=== PATIENT | female | born 1940 | race Caucasian/White ===

== ENCOUNTER 2016-06-18 07:28 | Observation (INO) ==
--- NOTE | 2016-06-18 07:34 | Emergency Department Note ---
Disposition Clinical Impression: Spinal stenosis of lumbar region, Urinary retention, Cauda equina syndrome Disposition: Admitted As Inpatient Condition: Fair Referrals: Lulu Kearney MD [Primary Care Provider] - Forms: ED Satisfaction Letter Time of Disposition: 14:40 Extremity Problem HPI - General Chief complaint: ED Extremity Problem,Nontraumatic Stated complaint: left hip pain Time Seen by Provider: 06/18/16 07:31 Source: patient, EMS Mode of arrival: EMS Limitations: no limitations Nursing Notes Reviewed: Yes Vital Signs Reviewed: Yes - History of Present Illness HPI Narrative: 75-year-old who states she got up to walk yesterday and developed left-sided hip pain. She is able to ambulate on her walker according to the squad. She has pain in her low back and left hip and some radiation down her leg. She denies bowel or bladder incontinence or retention type symptoms. No saddle anesthesia. Pt Subjective Complaint: extremity pain Onset (ago): day(s) Consistency: constant Injury Location: left Pain Scale: 9 Quality: aching Radiation: none Improves with: nothing Worsens with: weight bearing, walking Associated symptoms: Reports: denies other symptoms - Related Data Home Medications Medication Instructions Recorded Confirmed Albuterol Sulfate [Albuterol 1 puff IH Q4HR PRN 01/20/15 06/14/16 Inhaler] Aspirin Enteric Coated [Aspirin EC] 81 mg PO DAILY 01/20/15 06/14/16 Atenolol [Tenormin] 25 mg PO DAILY 01/20/15 06/14/16 Atorvastatin Calcium [Lipitor] 40 mg PO DAILY 01/20/15 06/14/16 Budesonide/Formoterol Fumarate 10.2 gm IH BID PRN 01/20/15 06/14/16 [Symbicort 160-4.5 Mcg Inhaler] Cilostazol [Pletal] 100 mg PO BID 01/20/15 06/14/16 Citalopram Hydrobromide 40 mg PO DAILY 01/20/15 06/14/16 [Citalopram HBr] [place]-3 Fatty Acids [Fish Oil] 1,000 mg PO DAILY 01/20/15 06/14/16 Vitamin E 1,000 unit PO DAILY 01/20/15 06/14/16 Tamsulosin [Flomax] 0.4 mg PO DAILY 07/27/15 06/14/16 Allergies Allergy/AdvReac Type Severity Reaction Status Date / Time adhesive AdvReac See Verified 01/20/15 09:52 Comments aripiprazole [From Abilivishnuy] AdvReac Shakiness Verified 01/20/15 09:49 bupropion AdvReac Rash Verified 01/20/15 09:50 Constitutional: Denies: fever, chills, weakness, weight change Eyes: Denies: eye pain, eye discharge, vision change ENT ED: Denies: ear pain, throat pain, dental pain, hearing loss, epistaxis, congestion, dysphagia Cardiovascular: Denies: chest pain, palpitations, dyspnea on exertion, edema, syncope Respiratory: Denies: cough, dyspnea, wheezes, hemoptysis, stridor Gastrointestinal: Denies: abdominal pain, nausea, vomiting, diarrhea, constipation, hematemesis, melena, hematochezia Genitourinary: Denies: dysuria, frequency, hematuria, discharge Musculoskeletal: Reports: back pain, arthralgia. Denies: neck pain, myalgia Integumentary: Denies: rash, abrasion, lesions Neurological: Denies: headache, weakness, numbness, paresthesias, confusion, abnormal gait, vertigo Psychiatric: Denies: anxiety, depression, suicidal thoughts, homicidal thoughts , auditory hallucinations, visual hallucinations Endocrine: Denies: fatigue Hematological/Lymphatic: Denies: easy bleeding, easy bruising Allergic/Immunologic: Denies: facial swelling, urticaria Past Medical History - Past Medical History Medical history: Reports: cancer, hyperlipidemia, hypertension Surgical history: Reports: angioplasty/stent (AAA, Bilateral fem-pop graft.), hip replacement Psychiatric history: Reports: no psych history - Social History Smoking Status: Current every day smoker Smokeless Tobacco Status: No Alcohol use: Reports: none Drug use: Reports: none Physical Exam - General Limitations: no limitations General appearance: alert, in no apparent distress - Head Head exam: atraumatic, normocephalic, normal inspection - Eye Eye exam: Present: normal appearance, PERRL, EOMI - Expanded Eye Exam Pupils: Left: reactive - ENT ENT exam: normal exam, normal oropharynx, mucous membranes moist - Expanded ENT Exam External ear exam: Present: normal external inspection Mouth exam: Present: normal external inspection Teeth exam: Present: normal inspection Throat exam: Present: normal inspection - Neck Neck exam: Present: normal inspection, full ROM, trachea midline - Chest Chest inspection: Present: normal inspection, symmetric chest wall rise - Respiratory Respiratory exam: Present: normal lung sounds bilaterally - Cardiovascular Cardiovascular exam: Present: regular rate, normal rhythm, normal heart sounds - Abdominal Exam Abdominal exam: Present: soft, Non-Tender. Absent: tenderness, distention, guarding, rebound, rigidity - Expanded Upper Extremity Exam Shoulder exam: Present: normal inspection Arm exam: Present: normal inspection Elbow exam: Present: normal inspection Forearm/Wrist exam: Present: normal inspection Hand exam: Present: normal inspection Vascular exam: Normal: capillary refill, radial pulse - Expanded Lower Extremity Exam Hip/Pelvis exam: Present: normal inspection, tenderness Upper leg exam: Present: normal inspection, full ROM Knee exam: Present: normal inspection, full ROM Lower leg exam: Present: normal inspection, full ROM Ankle exam: Present: normal inspection, full ROM Foot/toe exam: Present: normal inspection, full ROM Neurovascular/Tendon exam: Absent: motor deficit, sensory deficit, tendon deficit - Back Exam Back exam: Present: normal inspection, paraspinal tenderness - Neurological Exam Neurological exam: Present: alert, oriented X3 - Expanded Neurological Exam Patient oriented to: Present: person, place, time Coma Scale Eye Opening: Spontaneous Coma Scale Motor Response: Obeys Commands Coma Scale Verbal Response: Oriented Coma Scale Total: 15 - Psychiatric Psychiatric exam: Present: normal affect, normal mood - Skin Skin exam: Present: warm, dry, intact, normal color Course - Consultations Consultation #1: Discussed with Dr. Calderon, admit to the hospitalist. Time: 13:40 Consultation #2: Discussed with , admit. Time: 14:41 Vital Signs Temperature 97.1 F L 06/18/16 07:29 Pulse Rate 70 06/18/16 07:29 Respiratory Rate 18 06/18/16 07:29 Blood Pressure 188/77 06/18/16 07:29 O2 Sat by Pulse Oximetry 98 06/18/16 07:29 Temperature 97.1 F L 06/18/16 07:29 Pulse Rate 64 06/18/16 14:18 Respiratory Rate 18 06/18/16 14:18 Blood Pressure 149/73 06/18/16 14:18 O2 Sat by Pulse Oximetry 98 06/18/16 14:18 Oxygen Delivery Oxygen Delivery Nasal Cannula Extremity Problem, Nontraumati - Radiology Data Radiology results reviewed: Yes I reviewed the patient's radiology results. Hip X-Ray 06/18/16 07:31 IMPRESSION: No acute fracture with above findings. D/ / Jim Patel MD / Jim Patel MD Interpreting Provider: Jim Patel MD Lumbar Spine CT 06/18/16 07:31 IMPRESSION: No acute fracture. There is disc bulge and protrusion at several levels greater L2-3 and L3-4 with canal and foraminal compromise as above. Cholelithiasis. The urinary bladder is grossly distended. This needs clinical correlation for urinary retention D/ / Jim Patel MD / Jim Patel MD Interpreting Provider: Jim Patel MD Hip X-Ray 06/18/16 07:31 IMPRESSION: No acute fracture with above findings. D/ / Jim Patel MD / Jim Patel MD Interpreting Provider: Jim Patel MD Lumbar Spine CT 06/18/16 07:31 IMPRESSION: No acute fracture. There is disc bulge and protrusion at several levels greater L2-3 and L3-4 with canal and foraminal compromise as above. Cholelithiasis. The urinary bladder is grossly distended. This needs clinical correlation for urinary retention D/ / Jim Patel MD / Jim Patel MD Interpreting Provider: Jim Patel MD Lumbar Spine MRI 06/18/16 08:31 IMPRESSION: 1. Multilevel degenerative changes of the lumbar spine, as described above. 2. Severe spinal canal stenosis, moderate left and mild right neural foraminal narrowing at L2-3 secondary to a disc bulge, facet arthropathy and thickening of the ligamentum flavum. 3. Moderate spinal canal stenosis and mild bilateral neural foramina narrowing at L3-4 as described above. 4. Moderate spinal canal stenosis, moderate right and mild left neural foraminal narrowing at L4-5, as described above. 5. [id number] spinal canal stenosis, effacement of the right lateral recess and mild left neural foraminal narrowing at L5-S1, as described above. D/ / 06/18/2016 11:21:57 Michele Robin MD / Micaela Waller Interpreting Provider: Michele Robin MD
[2016-06-18] MEDS ORDERED: traMADol 50 MG TABLET PO ONE (10:01)
[2016-06-18] MEDS ORDERED: Nicotine 21 MG PATCH.TD24 TD STA (14:51)
[2016-06-18 15:17] LABS: Prothrombin Time 11.3 Seconds (9.4-12.1)
[2016-06-18 15:18] LABS: Basophils % 0.1 %; Eosinophils # 0.1 K/mcL (0.0-0.6); Eosinophils % 1.1 %; Hematocrit 36.7 % (35.3-44.9); Hemoglobin 12.4 g/dL (11.5-15.4); Immature Granulocytes % 0.3 % (0-4); Lymphocytes # 1.4 K/mcL (0.6-4.6); Mean Corpuscular HGB Conc 33.8 g/dL (31.6-35.5); Mean Corpuscular Hemoglobin 31.2 pg (28.0-33.3); Mean Corpuscular Volume 92.4 fL (83.0-100.0); Mean Platelet Volume 9.6 fL (9.4-12.4); Monocytes # 0.7 K/mcL (0.0-1.3); Neutrophils # 5.1 K/mcL (1.6-8.9); Platelet Count 197 K/mcL (140-400); Red Blood Count 3.97 M/mcL (3.82-4.97); Red Cell Distribution Width 13.6 % (11.5-14.5); Segmented Neutrophils % 70.5 %
[2016-06-18 15:20] LABS: Activated Partial Thrombo Time 28.2 Seconds (26.0-36.0); Calcium 9.3 mg/dL (8.6-10.8); Potassium 3.5 mEq/L (3.5-4.5)
--- NOTE | 2016-06-18 15:36 | Internal Med History&Physical ---
<Sabas Hubbard - Last Filed: 06/18/16 17:35> Date of Encounter: 06/18/16 Time of Encounter: 15:31 Assessment and Plan (1) Spinal stenosis of lumbar region Current visit: Yes Status: Acute Spinal surgeon consulted, plan on possible decompression tomorrow; NPO at midnight Likely the etiology of her symptoms given the location of the pain and history of incontinence Supportive measures with analgesia and anti-emetics (2) Urinary retention Current visit: Yes Status: Acute Plan as above with decompression surgery Continue with [facility] for now and accurately measure I/O's (3) CKD (chronic kidney disease) stage 3, GFR 30-59 ml/min Current visit: No Status: Chronic Initial Cr of 1.31 near her baseline Avoid nephrotoxic agents and continue to monitor electrolytes and Cr (4) DVT prophylaxis Current visit: Yes Status: Acute EPCDs Internal Medicine - H&P: HPI Chief complaint: hip pain, urinary retention Admitted From: Home Plans for Post Hospital Care: Home History of present illness: Ms. Butler is a 75 year old female who presents from home with left hip pain. She lives at home with her and is able to walk with assistance of a walker or her spouse. She states the pain started all of a sudden yesterday when she was walking, but she denied any trauma or injury. The pain is located at her left hip laterally, and radiates down to her left knee. There is no weakness or loss of sensation. She does mention a history of frequent falls, attributing them to passing out/TIAs, but she hasn't fallen in 2-3 weeks. She also admits to having a history of bowel incontinence for the past year and has history of urinary retention when she has surgery. Pt states that she was in too many pain today to notice that she was retaining urine and had a full bladder. Denies visual problems, fever, nausea, vomiting, chest pain, or shortness of breath. Past Med Surg Social Fam HX - Past Medical History Medical history: cancer, hyperlipidemia, hypertension Psychiatric history: no psych history - Past Surgical History Surgical History: angioplasty/stent (AAA, Bilateral fem-pop graft.), hip replacement - Social History Smoking Status: Current every day smoker Smokeless Tobacco Status: No Alcohol use: none Drug use: none - Family History Mother Hx Family Cancer: Yes Internal Medicine - H&P: Meds Albuterol Sulfate [Albuterol Inhaler] 1 puff IH Q4HR PRN 01/20/15 [History] Aspirin Enteric Coated [Aspirin EC] 81 mg PO DAILY 01/20/15 [History] Atenolol [Tenormin] 25 mg PO DAILY 01/20/15 [History] Atorvastatin Calcium [Lipitor] 40 mg PO DAILY 01/20/15 [History] Budesonide/Formoterol Fumarate [Symbicort 160-4.5 Mcg Inhaler] 2 puff IH BID 12/28 [History] Cilostazol [Pletal] 100 mg PO BID 01/20/15 [History] Citalopram Hydrobromide [Citalopram HBr] 40 mg PO DAILY 01/20/15 [History] [place]-3 Fatty Acids [Fish Oil] 1,000 mg PO DAILY 01/20/15 [History] Vitamin E 1,000 unit PO DAILY 01/20/15 [History] Tamsulosin [Flomax] 0.4 mg PO DAILY 07/27/15 [History] Allergies adhesive Allergy (Verified 06/18/16 15:44) Rash bupropion Allergy (Verified 06/18/16 15:44) Rash aripiprazole [From Abilify] Adverse Reaction (Verified 01/20/15 09:49) Shakiness All Systems PM: A 10-system review of systems was performed and is negative for pertinent findings except as documented above in the HPI. - Constitutional Constitutional: falls, no chills, no fever(s), no night sweats - EENT Eyes: no change in vision, no discharge, no pain, no photophobia Nose, mouth and throat: no dysphagia, no nasal discharge, no neck pain, no sore throat - Cardiovascular Cardiovascular ROS IM: syncope, no chest pain, no diaphoresis, no dyspnea, no irregular heart rhythm, no lightheadedness, no palpitations - Respiratory Respiratory: no cough, no dyspnea, no wheezing, no excessive phlegm production - Gastrointestinal Gastrointestinal: no abdominal pain, no diarrhea, no hematemesis, no hematochezia, no melena, no nausea, no vomiting - Genitourinary Genitourinary: urinary hesitancy, no change in urinary stream, no dysuria, no flank pain, no hematuria - Musculoskeletal Musculoskeletal ROS IM: arthralgias, no numbness, no tingling - Integumentary Integumentary IM: no rash, no unusual bruising - Neurological Neurological ROS: frequent falls, radicular pain, no confusion, no convulsions, no focal weakness, no numbness, no tingling, no tremor(s) - Hematologic/Lymphatic Hematologic/Lymphatic: no easy bruising - Constitutional Vitals: Temp Pulse Resp BP Pulse Ox 97.1 F L 64 18 134/70 98 06/18/16 07:29 06/18/16 14:18 06/18/16 15:20 06/18/16 15:20 06/18/16 14:18 General appearance: Present: cooperative, A&O X 3, pleasant, no acute distress, obese - Head Head exam: Present: atraumatic, normocephalic - Eye Eye exam: Present: PERRL, conjuntiva pink, sclera anicteric Pupils: Present: PERRL - Neck Neck exam general surgery: Present: supple, trachea midline. Absent: lymphadenopathy - Respiratory Respiratory exam: Present: CTAB. Absent: accessory muscle use, rales, rhonchi, wheezes - Cardiovascular Cardiovascular exam: Present: RRR, +S1, +S2. Absent: diastolic murmur, gallop, rubs, systolic murmur - GI/Abdominal GI/Abdominal exam: Present: normal bowel sounds, soft, no peritoneal signs. Absent: distended, tenderness - Extremities Exam Extremities exam: Present: tenderness (at the left hip to the left knee), warm, radial pulses palpable and symetrical. Absent: calf tenderness, cyanotic, pedal edema - Neurological Exam Neurological exam: Present: alert, CN II-XII intact, oriented X3, no focal deficits. Absent: pronater drift, facial droop, speech deficit - Skin Skin exam: Present: dry, intact Internal Med - H&P Results - Labs CBC & Chem 7: 06/18/16 15:01 06/18/16 15:01 Labs: Short CBC 06/18/16 Range/Units 15:01 WBC 7.2 (4.3-11.1) K/mcL Hgb 12.4 (11.5-15.4) g/dL Hct 36.7 (35.3-44.9) % Plt Count 197 (140-400) K/mcL Neutrophils # 5.1 (1.6-8.9) K/mcL BMP 06/18/16 15:01 Sodium 138 Potassium 3.5 Chloride 96 L Carbon Dioxide 34 H BUN 27 H Creatinine 1.31 H Glucose 110 H Calcium 9.3 - Impressions ITS Impressions Hip X-Ray 06/18/16 07:31 IMPRESSION: No acute fracture with above findings. D/ / Jim Patel MD / Jim Patel MD Interpreting Provider: Jim Patel MD Lumbar Spine CT 06/18/16 07:31 IMPRESSION: No acute fracture. There is disc bulge and protrusion at several levels greater L2-3 and L3-4 with canal and foraminal compromise as above. Cholelithiasis. The urinary bladder is grossly distended. This needs clinical correlation for urinary retention D/ / Jim Patel MD / Jim Patel MD Interpreting Provider: Jim Patel MD Lumbar Spine MRI 06/18/16 08:31 IMPRESSION: 1. Multilevel degenerative changes of the lumbar spine, as described above. 2. Severe spinal canal stenosis, moderate left and mild right neural foraminal narrowing at L2-3 secondary to a disc bulge, facet arthropathy and thickening of the ligamentum flavum. 3. Moderate spinal canal stenosis and mild bilateral neural foramina narrowing at L3-4 as described above. 4. Moderate spinal canal stenosis, moderate right and mild left neural foraminal narrowing at L4-5, as described above. 5. [id number] spinal canal stenosis, effacement of the right lateral recess and mild left neural foraminal narrowing at L5-S1, as described above. D/ / 06/18/2016 11:21:57 Michele Robin MD / Micaela Waller Interpreting Provider: Michele Robin MD <Zara Adkins - Last Filed: 06/19/16 09:46> Date of Encounter: 06/18/16 Internal Medicine - H&P: HPI History of present illness: Ms. Butler is a 75 year old female All Systems PM: A 10-system review of systems was performed and is negative for pertinent findings except as documented above in the HPI. - Constitutional Vitals: Temp Pulse Resp BP Pulse Ox 98.3 F 69 16 177/81 97 06/19/16 07:27 06/19/16 07:27 06/19/16 07:27 06/19/16 07:27 06/19/16 07:27 Internal Med - H&P Results - Labs CBC & Chem 7: 06/19/16 06:30 06/19/16 06:30 Labs: Short CBC 06/18/16 06/19/16 Range/Units 15:01 06:30 WBC 7.2 6.8 (4.3-11.1) K/mcL Hgb 12.4 11.8 (11.5-15.4) g/dL Hct 36.7 35.2 L (35.3-44.9) % Plt Count 197 181 (140-400) K/mcL Neutrophils # 5.1 4.3 (1.6-8.9) K/mcL BMP 06/18/16 06/19/16 15:01 06:30 Sodium 138 138 Potassium 3.5 3.6 Chloride 96 L 97 L Carbon Dioxide 34 H 36 H BUN 27 H 28 H Creatinine 1.31 H 1.34 H Glucose 110 H 97 Calcium 9.3 8.8 - Impressions ITS Impressions Chest X-Ray 06/18/16 16:14 IMPRESSION: No acute pulmonary process. D/ / Smooth Galindo MD / Smooth Galindo MD Interpreting Provider: Smooth Galindo MD
[2016-06-18] MEDS ORDERED: Ondansetron ODT 4 MG TAB.RAPDIS SL PRN (16:04)
[2016-06-18] MEDS ORDERED: Naloxone 0.4 MG/ML INJ IVP PRN ×2 (16:04→19:17)
[2016-06-18] MEDS ORDERED: Acetaminophen 325 MG TABLET PO PRN (16:04)
[2016-06-18] MEDS: *HR* HYDROcodone/Acet 5/325 mg TABLET PO PRN (20:03)
[2016-06-18] MEDS: Budesonide/Formoterol 160/4.5 MDI IH SCH (20:20)
[2016-06-19] MEDS: *HR* Morphine 2 MG/ML SYRINGE IVP PRN ×2 (00:29→09:31)
[2016-06-19 07:00] LABS: Basophils % 0.1 %; Eosinophils # 0.1 K/mcL (0.0-0.6); Eosinophils % 1.9 %; Hematocrit 35.2 % (35.3-44.9); Hemoglobin 11.8 g/dL (11.5-15.4); Immature Granulocytes % 0.4 % (0-4); Lymphocytes # 1.6 K/mcL (0.6-4.6); Lymphocytes % 23.6 %; Mean Corpuscular HGB Conc 33.5 g/dL (31.6-35.5); Mean Corpuscular Hemoglobin 31.3 pg (28.0-33.3); Mean Corpuscular Volume 93.4 fL (83.0-100.0); Mean Platelet Volume 9.5 fL (9.4-12.4); Monocytes # 0.7 K/mcL (0.0-1.3); Monocytes % 10.2 %; Neutrophils # 4.3 K/mcL (1.6-8.9); Platelet Count 181 K/mcL (140-400); Red Blood Count 3.77 M/mcL (3.82-4.97); Red Cell Distribution Width 13.6 % (11.5-14.5); Segmented Neutrophils % 63.8 %
[2016-06-19 07:19] LABS: Calcium 8.8 mg/dL (8.6-10.8); Potassium 3.6 mEq/L (3.5-4.5)
[2016-06-19] MEDS ORDERED: ceFAZolin 2,000 MG in D5% in Water (Mini-Bag+) 100 ML IVPB ONE (08:00)
[2016-06-19] MEDS: Aspirin Enteric Coated 81 MG Tablet PO SCH (09:24)
[2016-06-19] MEDS: Budesonide/Formoterol 160/4.5 MDI IH SCH ×2 (10:20→21:09)
--- NOTE | 2016-06-19 11:20 | Internal Med Progress Note ---
<Yadira Sorensen - Last Filed: 06/19/16 17:14> Date of Encounter: 06/19/16 Time of Encounter: 11:00 - Assessment and plan (1) Spinal stenosis of lumbar region Current Visit: Yes Status: Acute Assessment and plan: Dr. Calderon consulted; per documentation patient poor surgical candidate due to comorbidities. Likely the etiology of her symptoms given the location of the pain and history of incontinence Supportive measures with analgesia and anti-emetics. Consult was placed to pain specialists. Appreciate recs. PT/OT/SW input appreciated. 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 Ricketts oncology as outpatient. (2) Urinary retention Current Visit: Yes Status: Acute Assessment and plan: Continue with [facility] for now and accurately measure I/O's Suspect likely neurogenic bladder due to compression. (3) CKD (chronic kidney disease) stage 3, GFR 30-59 ml/min Current Visit: No Status: Chronic Assessment and plan: Initial Cr of 1.31 near her baseline Avoid nephrotoxic agents and continue to monitor electrolytes and Cr (4) DVT prophylaxis Current Visit: Yes Status: Acute Assessment and plan: EPCDs - Subjective Interval history: Patient seen/eval at bedside, she affirms general events prompting hospitalization, HPI reviewed. Reports history of resting tremors after taking abilify. She has bilateral LE pain, with prior urinary/stool incontinence. Dr Calderon consulted in interval. - Constitutional Vitals: Temp Pulse Resp BP Pulse Ox 98.3 F 69 16 177/81 97 06/19/16 07:27 06/19/16 07:27 06/19/16 10:21 06/19/16 07:27 06/19/16 10:21 General appearance: Present: cooperative, A&O X 3, pleasant, obese - Head Head exam: Present: atraumatic, normocephalic - Eye Eye exam: Present: EOMI, sclera anicteric - ENT ENT exam: Present: mucous membranes moist - Neck Neck exam general surgery: Present: normal inspection, trachea midline - Respiratory Respiratory exam: Present: rhonchi (scant ). Absent: wheezes - Cardiovascular Cardiovascular exam: Present: +S1, +S2. Absent: JVD - GI/Abdominal GI/Abdominal exam: Present: soft, no peritoneal signs. Absent: tenderness - Extremities Exam Extremities exam: Present: pedal edema (mild june LE), warm, radial pulses palpable and symetrical - Neurological Exam Neurological exam: Absent: reflexes normal (Right foot with achilles and patellar 3/4 DTR, no clonus elicited. Left foot 2/4 DTR. Sensation intact, no saddle anesthesia), facial droop Internal Medicine: Result - Labs CBC & Chem 7: 06/19/16 06:30 06/19/16 06:30 Labs: Short CBC 06/18/16 06/19/16 Range/Units 15:01 06:30 WBC 7.2 6.8 (4.3-11.1) K/mcL Hgb 12.4 11.8 (11.5-15.4) g/dL Hct 36.7 35.2 L (35.3-44.9) % Plt Count 197 181 (140-400) K/mcL Neutrophils # 5.1 4.3 (1.6-8.9) K/mcL BMP 06/18/16 06/19/16 15:01 06:30 Sodium 138 138 Potassium 3.5 3.6 Chloride 96 L 97 L Carbon Dioxide 34 H 36 H BUN 27 H 28 H Creatinine 1.31 H 1.34 H Glucose 110 H 97 Calcium 9.3 8.8 - ABG Interpretation ABG results: PT/INR, D-dimer PT 11.3 Seconds (9.4-12.1) 06/18/16 15:01 - Impressions Impressions Chest X-Ray 06/18/16 16:14 IMPRESSION: No acute pulmonary process. D/ / Smooth Galindo MD / Smooth Galindo MD Interpreting Provider: Smooth Galindo MD - VTE Documentation of Mechanical Device: Intermittent pneumatic compression device Consult Discharge Plan - Plan Referrals: Vishnu Huynh MD [Partnered Physician] - 08/19/16 11:00 am Lulu Kearney MD [Primary Care Provider] - Bartolo Britton DO [Partnered Physician] - 06/24/16 12:20 pm (APPOINTMENT MADE FOR 06/24/16 AT 12:20) <Pepe Peña - Last Filed: 06/19/16 18:16> Date of Encounter: 06/19/16 - Constitutional Vitals: Temp Pulse Resp BP Pulse Ox 98.2 F 80 16 105/58 96 06/19/16 16:39 06/19/16 16:39 06/19/16 16:39 06/19/16 16:39 06/19/16 16:39 Internal Medicine: Result - Labs CBC & Chem 7: 06/19/16 06:30 06/19/16 06:30 Labs: Short CBC 06/19/16 Range/Units 06:30 WBC 6.8 (4.3-11.1) K/mcL Hgb 11.8 (11.5-15.4) g/dL Hct 35.2 L (35.3-44.9) % Plt Count 181 (140-400) K/mcL Neutrophils # 4.3 (1.6-8.9) K/mcL BMP 06/19/16 06:30 Sodium 138 Potassium 3.6 Chloride 97 L Carbon Dioxide 36 H BUN 28 H Creatinine 1.34 H Glucose 97 Calcium 8.8 - ABG Interpretation ABG results: PT/INR, D-dimer PT 11.3 Seconds (9.4-12.1) 06/18/16 15:01 - Impressions Impressions Chest X-Ray 06/18/16 16:14 IMPRESSION: No acute pulmonary process. D/ / Smooth Galindo MD / Smooth Galindo MD Interpreting Provider: Smooth Galindo MD - Attending Attestation I examined this patient and my medical decision-making was reviewed with the [employer]/PA/Advanced Practice Nurse/Resident Physician. I agree with the documented findings, disposition and treatment plan as described except to the extent set forth below. No indication for surgery as per Spine surgeon. D/W pain management, for outpatient steroid injections. Contnue with pain control and rehab while inpatient.
--- NOTE | 2016-06-19 11:58 | Electrocardiograph Report ---
[facility] Test Date: 2016-06-18 Pat Name: Jyotsna Butler Department: 114 Room: [facility] Gender: F [employer]ogs[employer] Mat Inspector: JJG : 1940 Requested By: Vishnu Calderon Order Number: [id number] Reading MD: Maurice Cuenca MD Measurements Intervals [place] Rate: 72 P: 50 GA: 135 QRS: -15 QRSD: 88 T: 69 QT: 371 QTc: 395 Interpretive Statements SINUS RHYTHM POSSIBLE ANTERIOR MYOCARDIAL INFARCTION, OF INDETERMINATE AGE INFERIOR MYOCARDIAL INFARCTION, OF INDETERMINATE AGE Electronically Signed On 06-19-16 11:56:52 EST by Maurice Cuenca MD
--- NOTE | 2016-06-19 12:05 | Spinal Consult Note ---
Date of Encounter: 06/19/16 Time of Encounter: 11:05 Assessment and Plan (1) Lumbar stenosis Current Visit: Yes Status: Chronic On exam she is afebrile vital signs are stable. Her hips move symmetrically. She is neurovascularly intact with regard to her bilateral lower extremities. She has no clonus. She fires upper and lower extremity motor groups with good strength. MRI of the lumbar spine reveals moderate to severe stenosis L2-L4 with some moderate stenosis L4-L5. There are multilevel degenerative changes present. Impression: 1) lung cancer with oxygen dependence 2) status post lung resection 3) lumbar stenosis 4) lumbar radiculopathy 5) urinary retention possibly secondary to neurogenic bladder Plan: I think the patient is a poor surgical candidate. She apparently has been counseled by her oncologist that she should not undergo any major surgical procedures. I suggest pain management consultation for consideration of lumbar epidural steroid injections for her severe radicular symptoms in the left lower extremities. In addition, it may be reasonable to start inpatient physical therapy as well as outpatient therapy for lower extremity strengthening and gait training. (2) Lumbar radiculopathy Current Visit: Yes Status: Chronic History of Present Illness Chief complaint: left hip and left leg pain HPI: Ms. Butler is a 75 year old female With a history of lung cancer, lung resection, new right lung mass, on oxygen and in palliative care who has a two-month history of worsening and severe left hip and left lower extremity radicular symptoms. She is in a household ambulator who uses a walker. Due to her pain she was sent to the emergency department where workup revealed stenosis on MRI examination and a significant postvoid residual. We are asked to see patient regarding her intractable left lower extremity and hip pain as well as possible need for decompression for urinary retention. She denies fevers or chills, denies bowel difficulties, states she is aware when she needs to urinate. She also denies perineal or lower extremity numbness. Past Med Surg Social Fam HX - Past Medical History Medical history: cancer, hyperlipidemia, hypertension Psychiatric history: no psych history - Past Surgical History Surgical History: angioplasty/stent (AAA, Bilateral fem-pop graft.), hip replacement - Social History Smoking Status: Current every day smoker Smokeless Tobacco Status: No Alcohol use: none Drug use: none - Family History Mother Living Status: Hx Family Respiratory Disorders: Yes (lung cancer) Hx Family Cancer: Yes Hx Family GI Disorders: Yes (bowel cancer) Medications and Allergies Albuterol Sulfate [Albuterol Inhaler] 1 puff IH Q4HR PRN 01/20/15 [History] Aspirin Enteric Coated [Aspirin EC] 81 mg PO DAILY 01/20/15 [History] Atenolol [Tenormin] 25 mg PO DAILY 01/20/15 [History] Atorvastatin Calcium [Lipitor] 40 mg PO DAILY 01/20/15 [History] Budesonide/Formoterol Fumarate [Symbicort 160-4.5 Mcg Inhaler] 2 puff IH BID 12/28 [History] Cilostazol [Pletal] 100 mg PO BID 01/20/15 [History] Citalopram Hydrobromide [Citalopram HBr] 40 mg PO DAILY 01/20/15 [History] [place]-3 Fatty Acids [Fish Oil] 1,000 mg PO DAILY 01/20/15 [History] Vitamin E 1,000 unit PO DAILY 01/20/15 [History] Tamsulosin [Flomax] 0.4 mg PO DAILY 07/27/15 [History] Allergies adhesive Allergy (Verified 06/18/16 15:44) Rash bupropion Allergy (Verified 06/18/16 15:44) Rash aripiprazole [From [facility]] Adverse Reaction (Verified 01/20/15 09:49) Shakiness Results - Labs Result Diagrams: 06/19/16 06:30 06/19/16 06:30 Labs: Abnormal lab results RBC 3.77 M/mcL (3.82-4.97) L 06/19/16 06:30 Hct 35.2 % (35.3-44.9) L 06/19/16 06:30 Chloride 97 mEq/L (98-109) L 06/19/16 06:30 Carbon Dioxide 36 mEq/L (19-29) H 06/19/16 06:30 BUN 28 mg/dL (7-20) H 06/19/16 06:30 Creatinine 1.34 mg/dL (0.57-1.11) H 06/19/16 06:30 Est GFR ( Amer) 47 (> 60) L 06/19/16 06:30 Est GFR (Non-Af Amer) 39 (> 60) L 06/19/16 06:30 H & H 06/18/16 06/19/16 Range/Units 15:01 06:30 Hgb 12.4 11.8 (11.5-15.4) g/dL Hct 36.7 35.2 L (35.3-44.9) % All other labs normal. Consult Discharge Plan - Plan Referrals: Lulu eKarney MD [Primary Care Provider] -
[2016-06-19] MEDS: *HR* HYDROcodone/Acet 5/325 mg TABLET PO PRN (16:03)
[2016-06-19] MEDS ORDERED: Magnesium Oxide 400 MG TABLET PO ONE (17:20)
[2016-06-19] MEDS ORDERED: Potassium Chloride Elixir 20 MEQ/15 ML UDC PO ONE (17:20)
[2016-06-20 04:08] LABS: Basophils % 0.1 %; Eosinophils # 0.1 K/mcL (0.0-0.6); Eosinophils % 1.7 %; Hematocrit 35.3 % (35.3-44.9); Hemoglobin 11.7 g/dL (11.5-15.4); Immature Granulocytes % 0.4 % (0-4); Lymphocytes # 1.1 K/mcL (0.6-4.6); Lymphocytes % 13.2 %; Mean Corpuscular HGB Conc 33.1 g/dL (31.6-35.5); Mean Corpuscular Hemoglobin 31.2 pg (28.0-33.3); Mean Corpuscular Volume 94.1 fL (83.0-100.0); Mean Platelet Volume 9.7 fL (9.4-12.4); Monocytes % 11.5 %; Neutrophils # 6.2 K/mcL (1.6-8.9); Platelet Count 162 K/mcL (140-400); Red Blood Count 3.75 M/mcL (3.82-4.97); Red Cell Distribution Width 13.6 % (11.5-14.5); Segmented Neutrophils % 73.1 %
[2016-06-20 04:22] LABS: Calcium 8.7 mg/dL (8.6-10.8); Potassium 4.1 mEq/L (3.5-4.5)
[2016-06-20] MEDS: Aspirin Enteric Coated 81 MG Tablet PO SCH (09:35)
[2016-06-20] MEDS: Budesonide/Formoterol 160/4.5 MDI IH SCH (10:11)
--- NOTE | 2016-06-20 13:30 | Discharge Summary ---
<Yadira Sorensen - Last Filed: 06/20/16 16:16> Date of Encounter: 06/20/16 Time of Encounter: 11:35 - Discharge Diagnosis (1) Spinal stenosis of lumbar region Priority: Primary Status: Acute (2) Urinary retention Priority: Secondary Status: Acute (3) CKD (chronic kidney disease) stage 3, GFR 30-59 ml/min Priority: Secondary Status: Chronic (4) Non-small cell lung cancer Priority: Secondary Status: Chronic Qualifiers: Laterality: left Qualified Code(s): C34.92 - Malignant neoplasm of unspecified part of left bronchus or lung (5) DVT prophylaxis Priority: Secondary Status: Acute - Discharge Medications Prescriptions: HYDROcodone/Acet 5/325 mg [[place] 5-325 mg] 1 tab PO Q6HR PRN #30 tablet PRN Reason: moderate pain Home Medications: Albuterol Sulfate [Albuterol Inhaler] 1 puff IH Q4HR PRN 01/20/15 [History] Aspirin Enteric Coated [Aspirin EC] 81 mg PO DAILY 01/20/15 [History] Atenolol [Tenormin] 25 mg PO DAILY 01/20/15 [History] Atorvastatin Calcium [Lipitor] 40 mg PO DAILY 01/20/15 [History] Budesonide/Formoterol Fumarate [Symbicort 160-4.5 Mcg Inhaler] 2 puff IH BID 12/28 [History] Cilostazol [Pletal] 100 mg PO BID 01/20/15 [History] Citalopram Hydrobromide [Citalopram HBr] 40 mg PO DAILY 01/20/15 [History] [place]-3 Fatty Acids [Fish Oil] 1,000 mg PO DAILY 01/20/15 [History] Vitamin E 1,000 unit PO DAILY 01/20/15 [History] Tamsulosin [Flomax] 0.4 mg PO DAILY 07/27/15 [History] HYDROcodone/Acet 5/325 mg [[place] 5-325 mg] 1 tab PO Q6HR PRN #30 tablet [Rx] Allergies/Adverse Reactions: Allergies adhesive Allergy (Verified 06/18/16 15:44) Rash bupropion Allergy (Verified 06/18/16 15:44) Rash aripiprazole [From [facility]] Adverse Reaction (Verified 01/20/15 09:49) Shakiness Procedures/tests Complete & Pending: Procedures Performed prior 72 hours Category Date Time Status EKG [ECG 12 lead ECG] [ECG] Routine Y 06/18/16 16:18 Completed Date of admission: 06/18/16 14:55 Primary care physician: Lulu Kearney Consults: 06/18/16 16:06 Consult to Occupational Therapy [CONS] Routine Comment: Evaluate, develop and implement POC Consult to Physical Therapy [CONS] Routine Comment: Evaluate, develop and implement POC 06/18/16 16:08 Consult to Physician [CONS] Routine Consulting Provider: Vishnu Calderon Jr Reason for Consult: spinal stenosis, urinary retention Call Completed: No 06/18/16 16:35 Consult to Pastoral Services [CONS] Routine Comment: 06/19/16 10:41 Consult to Glass Engraver [CONS] Routine Reason for SW Consult: discharge planning Discharging clinician: Pepe Peña Anticipated date of discharge: 06/20/16 - Patient Status Disposition: Hospice - Home Condition: Fair Functional capacity at discharge: uses cane/walker Overall status at discharge: patient is progressing back to baseline - Discharge Instructions Follow Up With: Vishnu Huynh MD [Partnered Physician] - 08/19/16 11:00 am Lulu Kearney MD [Primary Care Provider] - Bartolo Britton DO [Partnered Physician] - 06/24/16 12:20 pm (APPOINTMENT MADE FOR 06/24/16 AT 12:20) Additional Instructions: Report to the nearest emergency room for any new or worsening symptoms. Take all meds as prescribed. Keep all appointments. - Diet and Activity Activity: as per physical therapy, wear oxygen at all times Diet: advance to your usual diet Hospital course: Ms. Butler is a 75 year old female who presents from home with left hip pain. She lives at home to [place] 06/18/2016 with her and is able to walk with assistance of a walker or her spouse. She states the pain started all of a sudden yesterday when she was walking, but she denied any trauma or injury. The pain is located at her left hip laterally, and radiates down to her left knee. There is no weakness or loss of sensation. She does mention a history of frequent falls, history of urinary retention when she has surgery. Pt states that she was in too many pain today to notice that she was retaining urine and had a full bladder. Symptoms concerning for radicular symptoms, prompting lumbar CT and MRI: Lumbar Spine CT 06/18/16 07:31 IMPRESSION: No acute fracture. There is disc bulge and protrusion at several levels greater L2-3 and L3-4 with canal and foraminal compromise as above. Cholelithiasis. The urinary bladder is grossly distended. This needs clinical correlation for urinary retention Lumbar Spine MRI 06/18/16 08:31 IMPRESSION: 1. Multilevel degenerative changes of the lumbar spine, as described above. 2. Severe spinal canal stenosis, moderate left and mild right neural foraminal narrowing at L2-3 secondary to a disc bulge, facet arthropathy and thickening of the ligamentum flavum. 3. Moderate spinal canal stenosis and mild bilateral neural foramina narrowing at L3-4 as described above. 4. Moderate spinal canal stenosis, moderate right and mild left neural foraminal narrowing at L4-5, as described above. 5. [id number] spinal canal stenosis, effacement of the right lateral recess and mild left neural foraminal narrowing at L5-S1, as described above. She would have d[place] placed for suspected neurogenic bladder. Spine surgeon Dr. Calderon consulted, recommendation that patient is a poor surgical candidate: She apparently has been counseled by her oncologist that she should not undergo any major surgical procedures. I suggest pain management consultation for consideration of lumbar epidural steroid injections for her severe radicular symptoms in the left lower extremities. In addition, it may be reasonable to start inpatient physical therapy as well as outpatient therapy for lower extremity strengthening and gait training. Patient underwent PT/OT eval, with recommendations for DME including front- wheeled walker, wheelchair, cane, grab bars in shower and toilet. She did improve clinically, and pain was controlled with narcotic regimen norco 5mg PO Q6H. OARRS reviewed and appropriate, had previously received Tramadol for a single prescriber. She has lung cancer, with severe spinal stenosis causing significant pain with walking and performing other ADLs. Appropriate for pain control with narcotic medication. Due to her distended urinary bladder and spinal stenosis, consideration of neurogenic bladder. She will continue d[place] upon discharge to hospice. At time of discharge, patient was clinically improved, hemodynamically stable, progressing to baseline and agreeable with plan of care. Service needed to resume hospice care. - Time Spent with Patient Total time spent providing and/or coordinating discharge services: Greater than 30 minutes - Constitutional Vitals: Temp Pulse Resp BP Pulse Ox 98.4 F 80 17 151/89 97 06/20/16 10:48 06/20/16 10:48 06/20/16 10:48 06/20/16 10:48 06/20/16 10:48 General appearance: Present: cooperative, A&O X 3, pleasant, obese - Head Head exam: Present: atraumatic, normocephalic - Eye Eye exam: Present: EOMI, sclera anicteric - ENT ENT exam: Present: mucous membranes moist - Neck Neck exam general surgery: Present: trachea midline - Respiratory Respiratory exam: Present: CTAB. Absent: accessory muscle use - Cardiovascular Cardiovascular exam: Present: +S1, +S2. Absent: JVD - GI/Abdominal GI/Abdominal exam: Present: soft, no peritoneal signs. Absent: tenderness - Extremities Exam Extremities exam: Present: warm, radial pulses palpable and symetrical. Absent : pedal edema - Neurological Exam Neurological exam: Absent: reflexes normal (Right foot with achilles and patellar 3/4 DTR, no clonus elicited. Left foot 2/4 DTR. Sensation intact, no saddle anesthesia) - VTE Documentation of Mechanical Device: Intermittent pneumatic compression device <Pepe Peña - Last Filed: 06/20/16 18:34> Date of Encounter: 06/20/16 Procedures/tests Complete & Pending: Procedures Performed prior 72 hours Category Date Time Status EKG [ECG 12 lead ECG] [ECG] Routine Y 06/18/16 16:18 Completed Date of admission: 06/18/16 14:55 Primary care physician: Lulu Kearney Consults: 06/18/16 16:06 Consult to Occupational Therapy [CONS] Routine Comment: Evaluate, develop and implement POC Consult to Physical Therapy [CONS] Routine Comment: Evaluate, develop and implement POC 06/18/16 16:08 Consult to Physician [CONS] Routine Consulting Provider: Vishnu Calderon Jr Reason for Consult: spinal stenosis, urinary retention Call Completed: No 06/18/16 16:35 Consult to Pastoral Services [CONS] Routine Comment: 06/19/16 10:41 Consult to Glass Engraver [CONS] Routine Reason for SW Consult: discharge planning Hospital course: Ms. Butler is a 75 year old female - Time Spent with Patient Total time spent providing and/or coordinating discharge services: - Constitutional Vitals: Temp Pulse Resp BP Pulse Ox 98.1 F 91 18 127/66 95 06/20/16 15:28 06/20/16 15:28 06/20/16 15:28 06/20/16 15:28 06/20/16 15:28 - Attending Attestation I examined this patient and my medical decision-making was reviewed with the [employer]/PA/Advanced Practice Nurse/Resident Physician. I agree with the documented findings, disposition and treatment plan as described except to the extent set forth below. Discharge home today, follow with pain management as outpatient.
--- NOTE | 2016-06-20 13:34 | Physician Discharge Referral ---
<Yadira Sorensen - Last Filed: 06/20/16 16:11> Home Health/Hosp Referral Info Transfer to: Hospice Attending Provider: Dr. Peña Provider in Charge Post Discharge: PCP - Diagnosis (1) Spinal stenosis of lumbar region Priority: Primary Status: Acute (2) Urinary retention Priority: Primary Status: Resolved (3) CKD (chronic kidney disease) stage 3, GFR 30-59 ml/min Priority: Secondary Status: Chronic (4) Non-small cell lung cancer Status: Chronic (5) DVT prophylaxis Priority: Primary Status: Acute - Respiratory Orders Oxygen / L per min (2L NC) Smoking Cessation: Smoking cessation has been advised. For more information, call the [employer] Tobacco Quit Line at 0-417-OEWN-NOW. - Diet/Nutrition Diet/Nutrition Orders: Cardiac - Activity Activity Orders: Ambulate - Services Needed Home Care Orders: Resume Hospice Care - Transfer Medications Prescriptions: HYDROcodone/Acet 5/325 mg [[place] 5-325 mg] 1 tab PO Q6HR PRN #30 tablet PRN Reason: moderate pain Home Medications: Albuterol Sulfate [Albuterol Inhaler] 1 puff IH Q4HR PRN 01/20/15 [History] Aspirin Enteric Coated [Aspirin EC] 81 mg PO DAILY 01/20/15 [History] Atenolol [Tenormin] 25 mg PO DAILY 01/20/15 [History] Atorvastatin Calcium [Lipitor] 40 mg PO DAILY 01/20/15 [History] Budesonide/Formoterol Fumarate [Symbicort 160-4.5 Mcg Inhaler] 2 puff IH BID 12/28 [History] Cilostazol [Pletal] 100 mg PO BID 01/20/15 [History] Citalopram Hydrobromide [Citalopram HBr] 40 mg PO DAILY 01/20/15 [History] [place]-3 Fatty Acids [Fish Oil] 1,000 mg PO DAILY 01/20/15 [History] Vitamin E 1,000 unit PO DAILY 01/20/15 [History] Tamsulosin [Flomax] 0.4 mg PO DAILY 07/27/15 [History] HYDROcodone/Acet 5/325 mg [[place] 5-325 mg] 1 tab PO Q6HR PRN #30 tablet [Rx] Allergies/Adverse Reactions: Allergies adhesive Allergy (Verified 06/18/16 15:44) Rash bupropion Allergy (Verified 06/18/16 15:44) Rash aripiprazole [From Abilify] Adverse Reaction (Verified 01/20/15 09:49) Shakiness Certification: Further, I certify that my clinical findings support that this patient is homebound (i.e. absences from home require considerable and taxing effort and are for medical reasons or gnosticism services or infrequently or short duration when for other reasons) because: Homebound Reason: Patient requires assistance of a person or device to safely leave home Attestation: My signature below is to certify that this patient is under my care and that I, or nurse practitioner, or a physician's assistant associate professor working with me, has a face-to -face encounter with this patient. <Pepe Peña - Last Filed: 06/20/16 18:34> - Respiratory Orders Smoking Cessation: Smoking cessation has been advised. For more information, call the [place] Tobacco Quit Line at 9-459-SPFT-NOW. Certification: Further, I certify that my clinical findings support that this patient is homebound (i.e. absences from home require considerable and taxing effort and are for medical reasons or gnosticism services or infrequently or short duration when for other reasons) because: Attestation: My signature below is to certify that this patient is under my care and that I, or nurse practitioner, or a physician's assistant associate professor working with me, has a face-to -face encounter with this patient.
[2016-06-20 15:31] VITALS: BP 127/66
== END 2016-06-20 18:08 | disposition hospice, home (50) ==
LOC: 3NENU 07:28 → EMEROO 07:28 → INTOOBSV 14:55 → OBSVTOIN 14:55 → SUATTDRO 14:55 → 3NENU 15:50
PROVIDERS: ADMIT Internal Medicine; ATTEND Internal Medicine

== ENCOUNTER 2018-03-06 14:28 | Inpatient (IN) ==
--- NOTE | 2018-03-06 14:35 | Emergency Department Note ---
Disposition Clinical Impression: Lung cancer, Respiratory distress Disposition: Admitted As Inpatient Condition: Good Forms: ED Satisfaction Letter General Adult HPI - General Stated complaint: SOB Time Seen by Provider: 03/06/18 14:33 - Related Data Home Medications Medication Instructions Recorded Confirmed Albuterol Sulfate [Albuterol 1 puff IH Q4HR PRN 01/20/15 02/09/18 Inhaler] Aspirin Enteric Coated [Aspirin EC] 81 mg PO DAILY 01/20/15 02/09/18 Atenolol [Tenormin] 25 mg PO DAILY 01/20/15 02/09/18 Atorvastatin Calcium [Lipitor] 40 mg PO DAILY 01/20/15 02/09/18 Budesonide/Formoterol Fumarate 2 puff IH BID 01/20/15 02/09/18 [Symbicort 160-4.5 Mcg Inhaler] Cilostazol [Pletal] 100 mg PO BID 01/20/15 02/09/18 Citalopram Hydrobromide 40 mg PO DAILY 01/20/15 02/09/18 [Citalopram HBr] [place]-3 Fatty Acids [Fish Oil] 1,000 mg PO DAILY 01/20/15 02/09/18 Vitamin E 1,000 unit PO DAILY 01/20/15 02/09/18 Tamsulosin [Flomax] 0.4 mg PO DAILY 07/27/15 02/09/18 Previous Rx's Medication Instructions Recorded HYDROcodone/Acet 5/325 mg [[place] 1 tab PO Q6HR PRN #30 tablet 06/20/16 5-325 mg] Allergies Allergy/AdvReac Type Severity Reaction Status Date / Time adhesive Allergy Rash Verified 02/24/18 08:45 bupropion Allergy Rash Verified 02/24/18 08:45 aripiprazole [From Abilify] AdvReac Shakiness Verified 02/24/18 08:45 Past Medical History - Past Medical History Medical history: Reports: cancer, COPD, CVA, hyperlipidemia, hypertension, TIA Surgical history: Reports: hysterectomy Psychiatric history: Reports: depression - Social History Smoking Status: Current every day smoker Smokeless Tobacco Status: No Alcohol use: Reports: none Drug use: Reports: none Course Vital Signs Temperature 98.8 F 03/06/18 14:36 Pulse Rate 74 03/06/18 14:36 Respiratory Rate 28 03/06/18 14:36 Blood Pressure 149/84 03/06/18 14:36 O2 Sat by Pulse Oximetry 95 03/06/18 14:36 Temperature 98.8 F 03/06/18 14:36 Pulse Rate 74 03/06/18 14:36 Respiratory Rate 28 03/06/18 14:36 Blood Pressure 149/84 03/06/18 14:36 O2 Sat by Pulse Oximetry 95 03/06/18 14:36 Oxygen Delivery Oxygen Delivery Nasal Cannula Critical Care Time Critical Care Time: Yes Total Critical Care Time: 30 Attestation: The high probability of a clinically significant, sudden or life threatening deterioration of the [] system(s) required my full and direct attention, intervention and personal management. The aggregate critical care time was [] minutes. This time is in addition to time spent performing reported procedures but includes the following: [] Data Review and interpretation [] Patient assessment and monitoring of vital signs [] Documentation [] Medication orders and management Attestation Statement - Attestation Attestation: I examined this patient and my medical decision-making was reviewed with the Resident Physician. I agree with the documented findings, disposition and treatment plan as described except to the extent set forth below. [id number] time provided Patient arrives by EMS from home complaining of dyspnea. She is receiving supplemental oxygen by face mask at the time of arrival. She appears visibly dyspneic and tachypneic. I evaluated her in conjunction with the resident physician Dr. Bailey 15:15: Pigtail catheter placed by the resident physician under my supervision. Patient tolerated procedure well
[2018-03-06] MEDS ORDERED: methylPREDNISolone 125 MG/2 ML VIAL IVP ONE (14:36)
[2018-03-06] MEDS ORDERED: Ipratropium/Albuterol Neb 3 ML IH ONE (14:36)
[2018-03-06] MEDS ORDERED: 0.9 % Sodium Chloride 500 ML IVC ONE (14:47)
--- NOTE | 2018-03-06 14:47 | Emergency Department Note ---
Disposition Clinical Impression: Respiratory distress, Tension pneumothorax, Elevated troponin Lung cancer Qualifiers: Laterality: unspecified laterality Lung location: unspecified part of lung Qualified Code(s): C34.90 - Malignant neoplasm of unspecified part of unspecified bronchus or lung Chronic kidney disease Qualifiers: Chronic kidney disease stage: unspecified stage Qualified Code(s): N18.9 - Chronic kidney disease, unspecified Disposition: Admitted As Inpatient Condition: Good Time of Disposition: 15:40 General Adult HPI - General Chief complaint: ED Shortness of Breath/Dyspnea Stated complaint: SOB Time Seen by Provider: 03/06/18 14:33 Source: patient, EMS Mode of arrival: EMS Limitations: no limitations Nursing Notes Reviewed: Yes Vital Signs Reviewed: Yes - History of Present Illness HPI Narrative: 77-year-old female with history of non-small cell lung cancer, COPD, hypertension diabetes presents for evaluation of difficulty breathing. Patient states that she had a lung biopsy performed 2 days ago. Notes worsening dyspnea since then. Patient arrived via EMS. Patient has baseline oxygen requirement of 3 L and was 84%. Patient improved with nebs in route via EMS. Patient's complaining of chest pain shortness of breath with a productive cough and had a subjective fever. Patient states she does have a history of surgery related to her cancer 2 or 3 years ago. Patient's currently not receiving any chemoradiation. Does follow with oncology here at [facility]. Patient denies a nausea vomiting or diaphoresis. Patient states that she would not want to be intubated if respiratory distress declined. Pain Scale: 6 - Related Data Home Medications Medication Instructions Recorded Confirmed Albuterol Sulfate [Albuterol 1 puff IH Q4HR PRN 01/20/15 02/09/18 Inhaler] Aspirin Enteric Coated [Aspirin EC] 81 mg PO DAILY 01/20/15 02/09/18 Atenolol [Tenormin] 25 mg PO DAILY 01/20/15 02/09/18 Atorvastatin Calcium [Lipitor] 40 mg PO DAILY 01/20/15 02/09/18 Budesonide/Formoterol Fumarate 2 puff IH BID 01/20/15 02/09/18 [Symbicort 160-4.5 Mcg Inhaler] Cilostazol [Pletal] 100 mg PO BID 01/20/15 02/09/18 Citalopram Hydrobromide 40 mg PO DAILY 01/20/15 02/09/18 [Citalopram HBr] [place]-3 Fatty Acids [Fish Oil] 1,000 mg PO DAILY 01/20/15 02/09/18 Vitamin E 1,000 unit PO DAILY 01/20/15 02/09/18 Tamsulosin [Flomax] 0.4 mg PO DAILY 07/27/15 02/09/18 Previous Rx's Medication Instructions Recorded HYDROcodone/Acet 5/325 mg [[place] 1 tab PO Q6HR PRN #30 tablet 06/20/16 5-325 mg] Allergies Allergy/AdvReac Type Severity Reaction Status Date / Time adhesive Allergy Rash Verified 02/24/18 08:45 bupropion Allergy Rash Verified 02/24/18 08:45 aripiprazole [From Abiliy] AdvReac Shakiness Verified 02/24/18 08:45 All systems ED: reviewed and negative except as stated. Constitutional: Reports: fever Cardiovascular: Reports: chest pain Respiratory: Reports: cough, dyspnea, sputum production. Denies: wheezes Past Medical History - Past Medical History Source: patient, old records reviewed Medical history: Reports: cancer, COPD, CVA, hyperlipidemia, hypertension, TIA Surgical history: Reports: hysterectomy Psychiatric history: Reports: depression - Social History Smoking Status: Current every day smoker Smokeless Tobacco Status: No Alcohol use: Reports: none Drug use: Reports: none Physical Exam - General Limitations: no limitations General appearance: alert, in distress - Head Head exam: atraumatic, normocephalic, normal inspection - Eye Eye exam: Present: normal appearance, EOMI - ENT ENT exam: normal exam, mucous membranes moist - Neck Neck exam: Present: normal inspection - Chest Chest inspection: Present: normal inspection, symmetric chest wall rise - Respiratory Respiratory exam: Present: accessory muscle use, prolonged expiratory phase, other (diffusely diminished.) - Cardiovascular Cardiovascular exam: Present: regular rate, normal rhythm. Absent: systolic murmur - Abdominal Exam Abdominal exam: Present: soft, Non-Tender - Extremities Exam Extremities exam: Present: normal inspection. Absent: pedal edema - Back Exam Back exam: Present: normal inspection - Neurological Exam Neurological exam: Present: alert, oriented X3, CN II-XII intact - Skin Skin exam: Present: warm, dry, intact, normal color Course Course Narrative: Patient seen and examined. Patient does appear to be in moderate distress. Patient is on 4 L nasal cannula and satting 96%. Patient does appear to be tachypneic. Records reviewed show the patient did have an IR biopsy with a chest x-ray that showed a minimal apical right pneumothorax. Patient will get chest x-ray bedside ultrasound of the lungs. Basic labs disposition likely admission. - Reevaluation(s) Reevaluation #1: Received a call from the radiologist stating that the patient had a pneumothorax which was under tension. Verbalized to the patient procedure for decompression and chest tube placement. Patient did get pneumodart placed by Dr. Mack. Time: 15:22 Reevaluation #2: Patient seen and examined. Patient's resting comfortably. States her breathing has improved. Patient's watching TV. Awaiting labs. Time: 16:21 - Consultations Consultation #1: Discussed the case with Dr. Alaniz and consult was placed to help manage the chest tube. Time: 15:39 Vital Signs Temperature 98.8 F 03/06/18 14:36 Pulse Rate 74 03/06/18 14:36 Respiratory Rate 28 03/06/18 14:36 Blood Pressure 149/84 03/06/18 14:36 O2 Sat by Pulse Oximetry 95 03/06/18 14:36 Temperature 98.8 F 03/06/18 14:36 Pulse Rate 70 03/06/18 15:51 Respiratory Rate 20 03/06/18 15:51 Blood Pressure 152/72 03/06/18 15:51 O2 Sat by Pulse Oximetry 98 03/06/18 15:51 Oxygen Delivery Oxygen Delivery Nasal Cannula Medical Decision Making - [facility] Narrative Medical decision making narrative: Patient presented with increased work of breathing and respiratory distress. Does have a history of non-small cell lung cancer. Patient's not currently on any type of chemoradiation therapy. Patient did have a recent biopsy performed 2 days ago which showed a small apical pneumothorax. Concerns for progression of pneumothorax. Patient's chest x-ray showed a right-sided pneumothorax with some tension. Emergent pigtail catheter was placed on the right chest tube with adequate decompression. Patient's tachypnea improved. Patient's work of breathing improved. Patient maintained on 4 L nasal cannula. Patient did receive aerosols and steroids given her history of COPD. Patient also had basic labs obtained. Patient's increased work of breathing likely secondary to the pneumothorax. Patient will be admitted to the hospital service with cardiothoracic surgery consult for chest tube. Patient's symptoms are not consistent with PE, ACS. Patient did have an elevated troponin but this is likely in the setting of demand ischemia. Patient was given aspirin. Patient EKG shows no ST elevation. Patient's been resting comfortable and has decreased the pain since the chest tube was placed. Patient's creatinine is consistent with chronic kidney disease. - Lab Data Lab results reviewed: Yes I reviewed the patient's lab results. Result diagrams: 03/06/18 16:10 03/06/18 16:10 Lab Results 03/06/18 03/06/18 03/06/18 Range/Units 16:10 16:10 16:10 WBC 7.4 (4.3-11.1) K/mcL RBC 4.09 (3.82-4.97) M/mcL Hgb 12.8 (11.5-15.4) g/dL Hct 38.6 (35.3-44.9) % MCV 94.4 (83.0-100.0) fL MCH 31.3 (28.0-33.3) pg MCHC 33.2 (31.6-35.5) g/dL RDW 14.1 (11.5-14.5) % Plt Count 163 (140-400) K/mcL MPV 9.4 (9.4-12.4) fL Immature Gran % 0.3 (0-4) % Seg Neutrophils % 79.6 % Lymphocytes % 12.0 % Monocytes % 6.6 % Eosinophils % 1.2 % Basophils % 0.3 % Neutrophils # 5.9 (1.6-8.9) K/mcL Lymphocytes # 0.9 (0.6-4.6) K/mcL Monocytes # 0.5 (0.0-1.3) K/mcL Eosinophils # 0.1 (0.0-0.6) K/mcL Basophils # 0.0 (0.0-0.2) K/mcL PT 11.3 (9.4-12.1) Seconds INR 1.0 VBG pH (7.32-7.42) pH Units VBG pCO2 (41-51) mmHg VBG pO2 (25-50) mmHg VBG HCO3 (21-27) mEq/L Sodium 139 (136-145) mEq/L Potassium 4.9 (3.5-5.1) mEq/L Chloride 101 (98-107) mEq/L Carbon Dioxide 32 H (23-29) mEq/L BUN 34 H (8-23) mg/dL Creatinine 1.34 H (0.60-1.20) mg/dL Est GFR ( Amer) 47 L (> 60) Est GFR (Non-Af Amer) 38 L (> 60) BUN/Creatinine Ratio 25 (6-26) Glucose 118 H (70-105) mg/dL Calculated Osmolality 297 (280-300) Lactic Acid (0.5-2.2) mmol/L Calcium 9.4 (8.6-10.3) mg/dL Total Bilirubin 0.9 (0.3-1.0) mg/dL Direct Bilirubin 0.2 (0.0-0.2) mg/dL Indirect Bilirubin 0.7 (0.0-1.2) mg/dL AST 12 L (13-39) Units/L ALT 18 (7-52) Units/L Alkaline Phosphatase 96 (34-104) Units/L Troponin I 0.11 H* (< 0.04) ng/mL B-Natriuretic Peptide (Less than 100) pg/mL Serum Total Protein 6.6 (6.4-8.9) g/dL Albumin 3.9 (3.5-5.7) g/dL Globulin 2.7 (2.4-3.5) g/dL Albumin/Globulin Ratio 1.4 (1.1-2.2) 03/06/18 03/06/18 03/06/18 Range/Units 16:10 16:10 16:28 WBC (4.3-11.1) K/mcL RBC (3.82-4.97) M/mcL Hgb (11.5-15.4) g/dL Hct (35.3-44.9) % MCV (83.0-100.0) fL MCH (28.0-33.3) pg MCHC (31.6-35.5) g/dL RDW (11.5-14.5) % Plt Count (140-400) K/mcL MPV (9.4-12.4) fL Immature Gran % (0-4) % Seg Neutrophils % % Lymphocytes % % Monocytes % % Eosinophils % % Basophils % % Neutrophils # (1.6-8.9) K/mcL Lymphocytes # (0.6-4.6) K/mcL Monocytes # (0.0-1.3) K/mcL Eosinophils # (0.0-0.6) K/mcL Basophils # (0.0-0.2) K/mcL PT (9.4-12.1) Seconds INR VBG pH 7.37 (7.32-7.42) pH Units VBG pCO2 59 H (41-51) mmHg VBG pO2 33 (25-50) mmHg VBG HCO3 34 H (21-27) mEq/L Sodium (136-145) mEq/L Potassium (3.5-5.1) mEq/L Chloride (98-107) mEq/L Carbon Dioxide (23-29) mEq/L BUN (8-23) mg/dL Creatinine (0.60-1.20) mg/dL Est GFR ( Amer) (> 60) Est GFR (Non-Af Amer) (> 60) BUN/Creatinine Ratio (6-26) Glucose (70-105) mg/dL Calculated Osmolality (280-300) Lactic Acid 1.4 (0.5-2.2) mmol/L Calcium (8.6-10.3) mg/dL Total Bilirubin (0.3-1.0) mg/dL Direct Bilirubin (0.0-0.2) mg/dL Indirect Bilirubin (0.0-1.2) mg/dL AST (13-39) Units/L ALT (7-52) Units/L Alkaline Phosphatase (34-104) Units/L Troponin I (< 0.04) ng/mL B-Natriuretic Peptide 91 (Less than 100) pg/mL Serum Total Protein (6.4-8.9) g/dL Albumin (3.5-5.7) g/dL Globulin (2.4-3.5) g/dL Albumin/Globulin Ratio (1.1-2.2) - Radiology Data Radiology results reviewed: Yes I reviewed the patient's radiology results. Chest X-Ray 03/06/18 15:15 IMPRESSION: 1. New small bore right chest tube along the lateral margin of the right hemithorax with resolution of previously seen right pneumothorax. 2. Suspected complete collapse of the right lower lobe. 3. Left basilar atelectasis. 4. Questionable trace left pleural effusion. D/ / Dawson Figueroa MD / Dawson Figueroa MD Interpreting Provider: Dawson Figueroa MD - EKG Data EKG #1 EKG attestation: Yes I reviewed and interpreted this EKG. EKG shows normal: sinus rhythm Rate: normal Rhythm: NSR Q waves: v1 T wave inversions noted in: aVL, aVR Interpretation: no acute changes, nonspecific ST-T wave changes S.B.A.R. - S.B.A.R. Situation: Demographics Background: Presenting Complaint Assessment: Vital Signs, Course and respsone to treatment, Patient/Family Expectation Recommendation: Barrier(s) to disposition, Recommendation based on pending studies, treatments, or consults S.B.A.RSandrine Report Given to: Dr. Gabriel Do Repor Time: 16:10
--- NOTE | 2018-03-06 15:45 | Emergency Department Note ---
Disposition Clinical Impression: Respiratory distress, Tension pneumothorax Lung cancer Qualifiers: Laterality: unspecified laterality Lung location: unspecified part of lung Qualified Code(s): C34.90 - Malignant neoplasm of unspecified part of unspecified bronchus or lung Disposition: Admitted As Inpatient Condition: Good Referrals: NONE,PCP [Primary Care Provider] - Forms: ED Satisfaction Letter General Adult HPI - General Chief complaint: ED Shortness of Breath/Dyspnea Stated complaint: SOB Time Seen by Provider: 03/06/18 14:33 Source: patient, EMS Mode of arrival: EMS Limitations: no limitations - History of Present Illness Pain Scale: 6 - Related Data Home Medications Medication Instructions Recorded Confirmed Albuterol Sulfate [Albuterol 1 puff IH Q4HR PRN 01/20/15 02/09/18 Inhaler] Aspirin Enteric Coated [Aspirin EC] 81 mg PO DAILY 01/20/15 02/09/18 Atenolol [Tenormin] 25 mg PO DAILY 01/20/15 02/09/18 Atorvastatin Calcium [Lipitor] 40 mg PO DAILY 01/20/15 02/09/18 Budesonide/Formoterol Fumarate 2 puff IH BID 01/20/15 02/09/18 [Symbicort 160-4.5 Mcg Inhaler] Cilostazol [Pletal] 100 mg PO BID 01/20/15 02/09/18 Citalopram Hydrobromide 40 mg PO DAILY 01/20/15 02/09/18 [Citalopram HBr] [place]-3 Fatty Acids [Fish Oil] 1,000 mg PO DAILY 01/20/15 02/09/18 Vitamin E 1,000 unit PO DAILY 01/20/15 02/09/18 Tamsulosin [Flomax] 0.4 mg PO DAILY 07/27/15 02/09/18 Previous Rx's Medication Instructions Recorded HYDROcodone/Acet 5/325 mg [[place] 1 tab PO Q6HR PRN #30 tablet 06/20/16 5-325 mg] Allergies Allergy/AdvReac Type Severity Reaction Status Date / Time adhesive Allergy Rash Verified 02/24/18 08:45 bupropion Allergy Rash Verified 02/24/18 08:45 aripiprazole [From Abilify] AdvReac Shakiness Verified 02/24/18 08:45 Constitutional: Reports: fever Cardiovascular: Reports: chest pain Respiratory: Reports: cough, dyspnea, sputum production. Denies: wheezes Past Medical History - Past Medical History Medical history: Reports: cancer, COPD, CVA, hyperlipidemia, hypertension, TIA Surgical history: Reports: hysterectomy Psychiatric history: Reports: depression - Social History Smoking Status: Current every day smoker Smokeless Tobacco Status: No Alcohol use: Reports: none Drug use: Reports: none Physical Exam - General Limitations: no limitations General appearance: alert, in distress Course Vital Signs Temperature 98.8 F 03/06/18 14:36 Pulse Rate 74 03/06/18 14:36 Respiratory Rate 28 03/06/18 14:36 Blood Pressure 149/84 03/06/18 14:36 O2 Sat by Pulse Oximetry 95 03/06/18 14:36 Temperature 98.8 F 03/06/18 14:36 Pulse Rate 74 03/06/18 14:36 Respiratory Rate 03/06/18 14:36 Blood Pressure 149/84 03/06/18 14:36 O2 Sat by Pulse Oximetry 95 03/06/18 14:36 Oxygen Delivery Oxygen Delivery Nasal Cannula Procedures - Chest Tube Chest Tube 1 Chest Tube Location: mid axillary line (pig tail catheter placement on the right Mid axillary line at the 5th intercostal space) Chest Tube Prep: betadine prep, sterile drapes applied Local Anesthetic: lidocaine 1% Amount of Anesthesia Used (mL): 10 Incision Made With: #10 blade Post Procedure: sutured to skin, sterile dressing applied Tube Drainage: none Amount of Initial Drainage (cc's): 0 (bubbles noted on initial placement) Post Procedure CXR?: Yes Patient Tolerated Procedure: Yes
[2018-03-06 16:26] LABS: Basophils % 0.3 %; Eosinophils # 0.1 K/mcL (0.0-0.6); Eosinophils % 1.2 %; Hematocrit 38.6 % (35.3-44.9); Hemoglobin 12.8 g/dL (11.5-15.4); Immature Granulocytes % 0.3 % (0-4); Lymphocytes # 0.9 K/mcL (0.6-4.6); Mean Corpuscular HGB Conc 33.2 g/dL (31.6-35.5); Mean Corpuscular Hemoglobin 31.3 pg (28.0-33.3); Mean Corpuscular Volume 94.4 fL (83.0-100.0); Mean Platelet Volume 9.4 fL (9.4-12.4); Monocytes # 0.5 K/mcL (0.0-1.3); Monocytes % 6.6 %; Neutrophils # 5.9 K/mcL (1.6-8.9); Platelet Count 163 K/mcL (140-400); Red Blood Count 4.09 M/mcL (3.82-4.97); Red Cell Distribution Width 14.1 % (11.5-14.5); Segmented Neutrophils % 79.6 %
[2018-03-06 16:31] LABS: Prothrombin Time 11.3 Seconds (9.4-12.1)
[2018-03-06 16:32] LABS: VBG HCO3 34 mEq/L (21-27); VBG PCO2 59 mmHg (41-51); VBG PH 7.37 pH Units (7.32-7.42); VBG PO2 33 mmHg (25-50)
[2018-03-06 16:47] LABS: Albumin 3.9 g/dL (3.5-5.7); Albumin/Globulin Ratio 1.4 (1.1-2.2); Bilirubin,Direct 0.2 mg/dL (0.0-0.2); Bilirubin,Indirect 0.7 mg/dL (0.0-1.2); Bilirubin,Total 0.9 mg/dL (0.3-1.0); Calcium 9.4 mg/dL (8.6-10.3); Globulin 2.7 g/dL (2.4-3.5); Potassium 4.9 mEq/L (3.5-5.1); Total Protein 6.6 g/dL (6.4-8.9)
[2018-03-06 17:04] LABS: Troponin I 0.11 ng/mL (< 0.04)
[2018-03-06] MEDS ORDERED: Naloxone 0.4 MG/ML INJ IVP PRN (17:12)
[2018-03-06] MEDS ORDERED: Ipratropium/Albuterol Neb 3 ML IH PRN (17:16)
[2018-03-06] MEDS ORDERED: *HR* Dextrose 50 % in Water (Syg) 50 ML SYRINGE IVP PRN (17:16)
[2018-03-06] MEDS ORDERED: Dextrose Gel 15 GM/37.5 ML TUBE PO PRN ×2 (17:16)
[2018-03-06] MEDS ORDERED: D5% in Water 1,000 ML IVC PRN (17:16)
[2018-03-06] MEDS ORDERED: Aspirin 325 MG TABLET PO ONE (17:18)
--- NOTE | 2018-03-06 17:47 | Internal Med History&Physical ---
Date of Encounter: 03/06/18 Time of Encounter: 17:42 Internal Medicine - H&P: HPI Admitted From: Home History of present illness: Ms. Butler is a 77 year old female past medical history significant for non- small cell lung cancer of the left lung, diagnosed about 3 years ago status post surgical resection, COPD, hypertension and coronary artery disease. Patient presented to the emergency room due to shortness of breath. Patient reports that since Friday when she underwent a CT GUIDED CORE BIOPSY RIGHT LUNG NODULE, she has been feeling short of breath. But today morning her shortness of breath became unbearable associated with upper back pain which she described as constant, and stabbing 8/10 radiating to her chest. For which the patient was brought to the emergency room. In the emergency room patient was found to have a right tension pneumothorax. Patient also reports 2 episodes nonbloody, nonbilious vomiting, nauseated. Denies fever, chills or abdominal pain. Past Med Surg Social Fam HX - Past Medical History Medical history: cancer, COPD, CVA, hyperlipidemia, hypertension, TIA Additional medical history: PVD, tardive dyskinesia Psychiatric history: depression - Past Surgical History Surgical History: hysterectomy Additional surgical history: LEFT LOWER LUNG LOBECTOMY, AORTA SURGERY, BILATERAL LOWER EXTREMITY ARTERIAL SURGERIES, RIGHT HIP REPLACEMENT. - Social History Smoking Status: Current every day smoker Smokeless Tobacco Status: No Alcohol use: none Drug use: none - Family History Mother Living Status: Hx Family Respiratory Disorders: Yes (lung cancer) Hx Family Cancer: Yes Hx Family GI Disorders: Yes (bowel cancer) Internal Medicine - H&P: Meds Albuterol Sulfate [Albuterol Inhaler] 1 puff IH Q4HR PRN 01/20/15 [History] Aspirin Enteric Coated [Aspirin EC] 81 mg PO DAILY 01/20/15 [History] Atenolol [Tenormin] 25 mg PO DAILY 01/20/15 [History] Atorvastatin Calcium [Lipitor] 40 mg PO DAILY 01/20/15 [History] Budesonide/Formoterol Fumarate [Symbicort 160-4.5 Mcg Inhaler] 2 puff IH BID 12/28 [History] Cilostazol [Pletal] 100 mg PO BID 01/20/15 [History] Citalopram Hydrobromide [Citalopram HBr] 40 mg PO DAILY 01/20/15 [History] [place]-3 Fatty Acids [Fish Oil] 1,000 mg PO DAILY 01/20/15 [History] Vitamin E 1,000 unit PO DAILY 01/20/15 [History] Tamsulosin [Flomax] 0.4 mg PO DAILY 07/27/15 [History] HYDROcodone/Acet 5/325 mg [[place] 5-325 mg] 1 tab PO Q6HR PRN #30 tablet [Rx] 3 Allergy/AdvReac Type Severity Reaction Status Date / Time adhesive Allergy Rash Verified 02/24/18 08:45 bupropion Allergy Rash Verified 02/24/18 08:45 aripiprazole [From Abilify] AdvReac Shakiness Verified 02/24/18 08:45 All Systems PM: A 10-system review of systems was performed and is negative for pertinent findings except as documented above in the HPI. - Constitutional Constitutional: no anorexia, no fever(s), no falls, no weight gain, no weight loss - EENT Eyes: no floaters, no pain Nose, mouth and throat: no mouth pain - Cardiovascular Cardiovascular ROS IM: no chest pain, no dyspnea on exertion, no palpitations, no paroxysmal nocturnal dyspnea - Respiratory Respiratory: dyspnea, pain on inspiration, pain with cough, no cough, no wheezing, no snoring, no chest congestion - Gastrointestinal Gastrointestinal: no belching, no change in bowel habits, no dyspepsia, no dysphagia, no loose stools - Genitourinary Genitourinary: no dysuria, no hematuria - Musculoskeletal Musculoskeletal ROS IM: back pain, no numbness, no tingling - Neurological Neurological ROS: no confusion, no focal weakness, no radicular pain - Psychiatric Psychiatric: no anxiety, no behavioral changes, no change in appetite - Endocrine Endocrine IM: no cold intolerance, no fatigue - Allergic/Immunologic Allergic/Immunologic: no tongue swelling, no throat swelling - Constitutional Vitals: Temp Pulse Resp BP Pulse Ox 98.8 F 70 22 160/71 98 03/06/18 14:36 03/06/18 15:51 03/06/18 17:24 03/06/18 17:24 03/06/18 15:51 Exam: General: Alert and oriented 3. In mild distress due to pain. Skin:Normal color, no rash, no lesions. HEENT:EOM, pupils equal, round and reactive. Cardiovascular: RRR, Normal S1 & S2, no rubs, murmurs or gallops. JVD about 6cm. Lungs: Clear to auscultation bilaterally, no wheezes or crackles. Abdomen: Obese, Soft, non-tender, no rigidity. Extremities:No deformity, no edema or tenderness, no joint swelling or clubbing. Neurological:Normal cognition and motor skills. Rest of the physical exam is non contributory Internal Med - H&P Results - Labs CBC & Chem 7: 03/06/18 16:10 03/06/18 16:10 - Assessment and plan (1) Tension pneumothorax Current Visit: Yes Status: Acute Assessment and plan: Status post chest tube placement. Plan Incentive spirometry Nebs when necessary Pain control with oxycodone 10 mg by mouth every 6 hours when necessary We will continue to follow cardiothoracic surgeon recommendation (2) Elevated troponin Current Visit: Yes Status: Acute Assessment and plan: Possibly secondary to demand ischemia in the setting of a tension pneumothorax. Plan Serial troponin Telemetry monitoring If if troponin continue trending up, we will consider cardiology consultation. (3) Respiratory distress Current Visit: Yes Status: Acute Assessment and plan: Most likely secondary to tension pneumothorax. Plan of care as problem #1. (4) DVT prophylaxis Current Visit: No Status: Acute Assessment and plan: Mechanical DVT prophylaxis. (5) CKD (chronic kidney disease) stage 3, GFR 30-59 ml/min Current Visit: No Status: Chronic Assessment and plan: Patient with a history of CKD. Creatinine at baseline. Avoid nephrotoxic medication. (6) COPD (chronic obstructive pulmonary disease) Current Visit: Yes Status: Acute Assessment and plan: Chest is clear to auscultation. As per patient she still smokes half a pack of cigarettes a day. Plan On nebs when necessary Educated about the importance of smoking cessation Qualifiers: COPD type: unspecified COPD Qualified Code(s): J44.9 - Chronic obstructive pulmonary disease, unspecified (7) Hypertension Current Visit: Yes Status: Acute Assessment and plan: Plan: We will continue patient on home antihypertensive medication. On atenolol 25 mg by mouth daily. Qualifiers: Hypertension type: essential hypertension Qualified Code(s): I10 - Essential (primary) hypertension - Time Spent With Patient Total time spent is greater than 50% in coordination of care (as documented) at patient's floor/unit and/or counseling patient: Greater than 35 minutes
[2018-03-06] MEDS: Budesonide/Formoterol 80/4.5 MDI IH SCH (20:05)
[2018-03-06] MEDS ORDERED: Insulin DETEMIR 100 UNIT/ML X5UNITS SQ SCH (21:00)
[2018-03-06] MEDS: *HR* OxyCODONE Immed Rel 5 MG TABLET PO PRN (21:27)
[2018-03-07 05:08] LABS: Hematocrit 38.3 % (35.3-44.9); Hemoglobin 12.9 g/dL (11.5-15.4); Immature Granulocytes % 0.4 % (0-4); Lymphocytes # 0.6 K/mcL (0.6-4.6); Lymphocytes % 8.1 %; Mean Corpuscular HGB Conc 33.7 g/dL (31.6-35.5); Mean Corpuscular Hemoglobin 31.3 pg (28.0-33.3); Mean Platelet Volume 9.6 fL (9.4-12.4); Monocytes # 0.3 K/mcL (0.0-1.3); Monocytes % 4.3 %; Neutrophils # 6.5 K/mcL (1.6-8.9); Platelet Count 158 K/mcL (140-400); Red Blood Count 4.12 M/mcL (3.82-4.97); Segmented Neutrophils % 87.2 %
[2018-03-07 05:31] LABS: Calcium 9.2 mg/dL (8.6-10.3); Magnesium 2.1 mg/dL (1.6-2.6); Phosphorous 3.7 mg/dL (2.7-4.5); Potassium 4.5 mEq/L (3.5-5.1)
[2018-03-07] MEDS ORDERED: Insulin LISPRO 300 UNITS/3 ML VIAL SQ SCH ×2 (07:30→08:00)
--- NOTE | 2018-03-07 08:37 | Cardiothoracic Consult Note ---
Date of Encounter: 03/07/18 Time of Encounter: 08:35 Assessment and Plan (1) Lung cancer Current Visit: No Status: Resolved The assessment and plan as outlined above was discussed with the patient and/or family members who expressed understanding and agreement. All questions were answered. I took the chest tube off suction. I will check a chest x-ray tomorrow morning. If this looks good, I will discontinue the chest tube tomorrow morning in the patient can be discharged. Qualifiers: Laterality: right Lung location: unspecified part of lung Qualified Code( s): C34.91 - Malignant neoplasm of unspecified part of right bronchus or lung - History of Present Illness History of present illness: Ms. Butler is a 77 year old female The patient is a 77-year-old female who underwent a left lobectomy 2-3 years ago for lung cancer. She now has a new lung cancer on the right lung. She underwent needle biopsy 2 weeks ago in interventional radiology. She was admitted yesterday through the emergency room with a collapsed lung. A chest tube was inserted in the emergency room. The last chest x-ray revealed no pneumothorax. The plan is to treat the lung cancer with radiation therapy and chemotherapy. Social history. The patient lives in [place] with her . She continues to smoke one half pack of cigarettes per day AGAINST MEDICAL ADVICE. She is on 3 L of oxygen by nasal prong continuously at home. She does not drink alcohol. Past Med Surg Social Fam HX - Past Medical History Medical history: cancer, COPD, CVA, hyperlipidemia, hypertension, TIA Additional medical history: PVD, tardive dyskinesia Psychiatric history: depression - Past Surgical History Surgical History: hysterectomy Additional surgical history: LEFT LOWER LUNG LOBECTOMY, AORTA SURGERY, BILATERAL LOWER EXTREMITY ARTERIAL SURGERIES, RIGHT HIP REPLACEMENT. - Social History Smoking Status: Current every day smoker Packs per day: 1/2 Smokeless Tobacco Status: No Alcohol use: none Drug use: none - Family History Mother Living Status: Hx Family Respiratory Disorders: Yes (lung cancer) Hx Family Cancer: Yes (Brain Cancer) Hx Family GI Disorders: Yes (bowel cancer) Medications and Allergies Tamsulosin [Flomax] 0.4 mg PO DAILY 07/27/15 [History] Albuterol Sulfate [Proair Hfa] 2 puff IH Q4H PRN 03/06/18 [History] Amantadine HCl [Amantadine] 100 mg PO TID 03/06/18 [History] Atenolol [Tenormin] 25 mg PO DAILY 03/06/18 [History] Atorvastatin [Lipitor] 40 mg PO DAILY 03/06/18 [History] Budesonide/Formoterol 160/4.5 [Symbicort 160/4.5] 2 puff IH BID 03/06/18 [ History] Cilostazol [Pletal] 100 mg PO BID 03/06/18 [History] Citalopram [CeleXA] 20 mg PO DAILY 03/06/18 [History] Escitalopram [Lexapro] 10 mg PO DAILY 03/06/18 [History] Furosemide [Lasix] 40 mg PO DAILY 03/06/18 [History] risperiDONE [Risperidone] 1 mg PO BID 03/06/18 [History] 3 Allergy/AdvReac Type Severity Reaction Status Date / Time adhesive Allergy Rash Verified 03/06/18 19:47 bupropion Allergy Rash Verified 03/06/18 19:47 aripiprazole [From Abilify] AdvReac Shakiness Verified 03/06/18 19:47 All Systems Review: The remainder of the systems were reviewed and are negative Physical Examination Vital Signs, Last 4 Hours Temp Pulse Resp BP Pulse Ox 03/07/18 06:40 98.1 F 66 18 155/66 95 03/07/18 04:36 98.1 F 62 17 178/72 94 Lungs are clear to percussion and auscultation. Her left thoracotomy incision is well-healed. Her chest tube has minimal drainage and no air leak. Results 03/07/18 04:37 03/07/18 04:37 Lab Results, Last 24 hours 03/06/18 03/07/18 03/07/18 22:16 04:37 04:37 WBC 7.4 Hgb 12.9 Hct 38.3 Plt Count 158 Sodium Potassium Chloride Carbon Dioxide BUN Creatinine Glucose Calcium Magnesium Troponin I 0.11 H* 0.11 H* 03/07/18 04:37 WBC Hgb Hct Plt Count Sodium 135 L Potassium 4.5 Chloride 101 Carbon Dioxide 28 BUN 33 H Creatinine 1.17 Glucose 143 H Calcium 9.2 Magnesium 2.1 Troponin I Consult Discharge Plan - Plan Referrals: NONE,PCP [Primary Care Provider] -
[2018-03-07] MEDS: Budesonide/Formoterol 80/4.5 MDI IH SCH ×2 (09:39→21:25)
--- NOTE | 2018-03-07 12:55 | Internal Med Progress Note ---
Hospitalist Progress Note - Encounter Date of Encounter: 03/07/18 Time of Encounter: 12:52 - Subjective Interval History: Patient seen and evaluated at bedside, denies shortness of breath, chest pain, nausea or vomiting. With resting tremors, which she reports are chronic. - Exam Vitals: Temp Pulse Resp BP Pulse Ox 98.6 F 68 16 124/53 96 03/07/18 10:24 03/07/18 10:24 03/07/18 10:24 03/07/18 10:24 03/07/18 10:24 Exam: General: Alert and oriented 3. No distress. Cardiovascular: RRR, Normal S1 & S2, no rubs, murmurs or gallops. JVD about 6cm. Lungs: Good air entry, Clear to auscultation bilaterally, no wheezes or crackles. Abdomen: Obese, Soft, non-tender, no rigidity. Extremities: no edema or tenderness, strength is 5 out of 5 in the upper and lower extremity. Neurological:Normal cognition. Resting and intentional tremors. Rest of the physical exam is non contributory - Assessment and Plan (1) Tension pneumothorax Current Visit: Yes Status: Acute Assessment and Plan: Following a CT-guided lung biopsy. Status post chest tube placement. Good air entry bilaterally. Plan Chest to waterseal as per thoracic surgery recommendation. Morning x-ray Continue incentive spirometry Possible discharge tomorrow On oxycodone 10 mg by mouth every 6 hours when necessary for pain control (2) Elevated troponin Current Visit: Yes Status: Acute Assessment and Plan: Likely due to demand ischemia. No chest pain. Plan Outpatient cardiology follow-up. (3) CKD (chronic kidney disease) stage 3, GFR 30-59 ml/min Current Visit: No Status: Chronic Assessment and Plan: Kidney function back to baseline. Discontinue IV fluid. (4) COPD (chronic obstructive pulmonary disease) Current Visit: Yes Status: Acute Assessment and Plan: On 2 L of home oxygen. Chest is clear to auscultation. Plan Continue oxygen by nasal cannula. Titrate for O2 sat duration more than 92%. Nebs every 4 hours when necessary. Continue Symbicort (5) Hypertension Current Visit: Yes Status: Acute Assessment and Plan: Blood pressure well controlled. Continue atenolol 25 mg daily by mouth. We will continue to monitor for medication adjustment if necessary. (6) DVT prophylaxis Current Visit: No Status: Acute Assessment and Plan: Mechanical DVT prophylaxis with intermittent pneumatic compression (7) Lung cancer Current Visit: Yes Status: Acute Assessment and Plan: History of left lung cancer status post lobectomy about 3 years ago. Patient with a new diagnosis of lung cancer in the right lung. Plan Outpatient follow-up with heme&Onc - Summary of Assessment and Plan Summary of Assessment and Plan: Patient to continue the hospital. Chest tube to waterseal. - Time Spent with Patient Total time spent is greater than 50% in coordination of care (as documented) at patient's floor/unit and/or counseling patient: 25 - 35 minutes Plan of Care Discussed with: patient (the nurse.) Internal Medicine: Result - Labs CBC & Chem 7: 03/07/18 04:37 03/07/18 04:37 Labs: Short CBC 03/07/18 Range/Units 04:37 WBC 7.4 (4.3-11.1) K/mcL Hgb 12.9 (11.5-15.4) g/dL Hct 38.3 (35.3-44.9) % Plt Count 158 (140-400) K/mcL Neutrophils # 6.5 (1.6-8.9) K/mcL BMP 03/07/18 04:37 Sodium 135 L Potassium 4.5 Chloride 101 Carbon Dioxide 28 BUN 33 H Creatinine 1.17 Glucose 143 H Calcium 9.2 Cardiac Enzymes 03/06/18 03/07/18 Range/Units 22:16 04:37 Troponin I 0.11 H* 0.11 H* (< 0.04) ng/mL - ABG Interpretation ABG results: PT/INR, D-dimer PT 11.3 Seconds (9.4-12.1) 03/06/18 16:10 - VTE Documentation of Mechanical Device: Graduated compression elastic hosiery Consult Discharge Plan - Plan Referrals: NONE,PCP [Primary Care Provider] - (4) COPD (chronic obstructive pulmonary disease) Qualifiers: COPD type: unspecified COPD Qualified Code(s): J44.9 - Chronic obstructive pulmonary disease, unspecified (5) Hypertension Qualifiers: Hypertension type: essential hypertension Qualified Code(s): I10 - Essential (primary) hypertension (7) Lung cancer Qualifiers: Laterality: right Lung location: unspecified part of lung Qualified Code(s) : C34.91 - Malignant neoplasm of unspecified part of right bronchus or lung
[2018-03-07] MEDS: *HR* OxyCODONE Immed Rel 5 MG TABLET PO PRN (18:55)
[2018-03-08] MEDS: Budesonide/Formoterol 80/4.5 MDI IH SCH (07:59)
--- NOTE | 2018-03-08 09:11 | Cardiothoracic Progress Note ---
Date of Encounter: 03/08/18 Time of Encounter: 09:09 - Assessment and plan (1) Lung cancer Current Visit: No Status: Resolved The chest tube was removed. The patient is okay for discharge from my standpoint. Qualifiers: Laterality: right Lung location: unspecified part of lung Qualified Code( s): C34.91 - Malignant neoplasm of unspecified part of right bronchus or lung - Subjective Interval history: The patient has no complaints. Vital Signs, Last 4 Hours Temp Pulse Resp BP Pulse Ox 03/08/18 08:01 16 91 03/08/18 06:55 98.9 F 92 16 172/90 91 Oxgyen Flow Rate Oxygen Flow Rate (LPM) 4 Weight 03/06/18 03/07/18 03/08/18 23:59 23:59 23:59 Weight 78.3 kg 79.6 kg Lungs are clear to percussion and auscultation. The chest tube has no drainage and no air leak. Chest x-ray reveals no pneumothorax. - Labs 03/07/18 04:37 03/07/18 04:37 - VTE Documentation of Mechanical Device: Graduated compression elastic hosiery Consult Discharge Plan - Plan Referrals: NONE,PCP [Primary Care Provider] -
[2018-03-08] MEDS ORDERED: amLODIPine 5 MG TABLET PO SCH (10:30)
--- NOTE | 2018-03-08 10:44 | Discharge Summary ---
- NOTES TO OUTPATIENT PROVIDER Notes to Outpatient Provider: Follow-up with your sales administration specialist within a week Orders not resulted at time of discharge: Pending orders 03/07/18 12:55 EKG [ECG 12 lead ECG] [ECG] Routine Date of Encounter: 03/08/18 Time of Encounter: 10:41 - Discharge Diagnosis (1) Tension pneumothorax Priority: Primary Status: Resolved (2) Elevated troponin Priority: Secondary Status: Resolved (3) CKD (chronic kidney disease) stage 3, GFR 30-59 ml/min Priority: Secondary Status: Resolved (4) COPD (chronic obstructive pulmonary disease) Priority: Secondary Status: Chronic Qualifiers: COPD type: unspecified COPD Qualified Code(s): J44.9 - Chronic obstructive pulmonary disease, unspecified (5) Hypertension Priority: Secondary Status: Chronic Qualifiers: Hypertension type: essential hypertension Qualified Code(s): I10 - Essential (primary) hypertension (6) DVT prophylaxis Priority: Secondary Status: Acute (7) Lung cancer Priority: Secondary Status: Chronic Qualifiers: Laterality: right Lung location: unspecified part of lung Qualified Code( s): C34.91 - Malignant neoplasm of unspecified part of right bronchus or lung Hospital course: Ms. Butler is a 77 year old female past medical history significant for left lung cancer status post lobectomy about 3 years ago. And new diagnosis of lung cancer of the right lung, COPD, tobacco abuse, CKD, and hypertension. Patient presented to the emergency room complaining of shortness of breath he days duration following a CT-guided biopsy of the right lung. In the emergency room the patient was found to have tension pneumothorax, for which a chest tube was inserted. Chest tube removal after resolution of pneumothorax and patient cleared by thoracic surgeon to be discharged. Patient is clinically stable to be discharged home. Recommended to follow-up with her sales administration specialist as an outpatient. - Time Spent with Patient Total time spent providing and/or coordinating discharge services: Less than 30 minutes - Discharge Medications Home Medications: Tamsulosin [Flomax] 0.4 mg PO DAILY 07/27/15 [History] Albuterol Sulfate [Proair Hfa] 2 puff IH Q4H PRN 03/06/18 [History] Amantadine HCl [Amantadine] 100 mg PO TID 03/06/18 [History] Atenolol [Tenormin] 25 mg PO DAILY 03/06/18 [History] Atorvastatin [Lipitor] 40 mg PO DAILY 03/06/18 [History] Budesonide/Formoterol 160/4.5 [Symbicort 160/4.5] 2 puff IH BID 03/06/18 [ History] Cilostazol [Pletal] 100 mg PO BID 03/06/18 [History] Citalopram [CeleXA] 20 mg PO DAILY 03/06/18 [History] Escitalopram [Lexapro] 10 mg PO DAILY 03/06/18 [History] Furosemide [Lasix] 40 mg PO DAILY 03/06/18 [History] risperiDONE [Risperidone] 1 mg PO BID 03/06/18 [History] Allergies/Adverse Reactions: 3 Allergy/AdvReac Type Severity Reaction Status Date / Time adhesive Allergy Rash Verified 03/06/18 19:47 bupropion Allergy Rash Verified 03/06/18 19:47 aripiprazole [From Abilify] AdvReac Shakiness Verified 03/06/18 19:47 Date of admission: 03/06/18 17:12 Primary care physician: PCP NONE - Constitutional Vitals: Temp Pulse Resp BP Pulse Ox 98.9 F 92 16 172/90 91 03/08/18 06:55 03/08/18 06:55 03/08/18 08:01 03/08/18 06:55 03/08/18 08:01 Exam: General: Alert and oriented 3. No distress. Cardiovascular: RRR, Normal S1 & S2, no rubs, murmurs or gallops. JVD about 6cm. Lungs: Good air entry, Clear to auscultation bilaterally, no wheezes or crackles. Abdomen: Obese, Soft, non-tender, no rigidity. Extremities: no edema, strength is 5 out of 5 in the upper and lower extremity. Neurological: Normal cognition. Resting and intentional tremors. Rest of the physical exam is non contributory - Patient Status Disposition: Home, Self-Care Condition: Good Functional capacity at discharge: independent ambulation Overall status at discharge: patient is back to baseline - Discharge Instructions Follow Up With: NONE,PCP [Primary Care Provider] - - Diet and Activity Activity: resume usual activities as tolerated Diet: advance to your usual diet - VTE Documentation of Mechanical Device: Graduated compression elastic hosiery
[2018-03-08 13:52] VITALS: BP 164/74
--- NOTE | 2018-03-11 17:14 | Electrocardiograph Report ---
[place] [id number] Test Date: 2018-03-06 Pat Name: Jyotsna Butler Department: [id number] Room: 2A13 Gender: F Cargo Supervisor: : 1940 Requested By: Jacques Bailey Order Number: [id number] Reading MD: Jonh Arellano Measurements Intervals [place] Rate: 75 P: [place]: 150 QRS: 19 QRSD: 86 T: 92 QT: 374 QTc: 418 Interpretive Statements Normal sinus rhythm Low voltage, precordial leads Poor R wave progression. Nonspecific T abnormalities, lateral leads Electronically Signed On 03-11-2018 17:12:25 EDT by Jonh Arellano
== END 2018-03-08 15:20 | disposition home or self-care (01) | DRG 200 ==
LOC: 2ANU 14:28 → EMEROOARM 14:28 → SUATTDRO 17:12 → 2ANU 18:16
PROVIDERS: ADMIT Internal Medicine; ATTEND Internal Medicine

== ENCOUNTER 2018-10-21 18:54 | Inpatient (IN) ==
[2018-10-21 20:00] LABS: Basophils % 0.3 %; Eosinophils # 0.4 K/mcL (0.0-0.6); Eosinophils % 5.1 %; Hematocrit 34.5 % (35.3-44.9); Hemoglobin 11.4 g/dL (11.5-15.4); Immature Granulocytes % 0.4 % (0-4); Lymphocytes # 1.3 K/mcL (0.6-4.6); Lymphocytes % 16.8 %; Mean Corpuscular Hemoglobin 31.6 pg (28.0-33.3); Mean Corpuscular Volume 95.6 fL (83.0-100.0); Mean Platelet Volume 9.6 fL (9.4-12.4); Monocytes # 0.9 K/mcL (0.0-1.3); Monocytes % 11.3 %; Neutrophils # 5.2 K/mcL (1.6-8.9); Platelet Count 197 K/mcL (140-400); Red Blood Count 3.61 M/mcL (3.82-4.97); Red Cell Distribution Width 13.6 % (11.5-14.5); Segmented Neutrophils % 66.1 %
[2018-10-21 20:12] LABS: INR 1.1; Prothrombin Time 11.9 Seconds (9.4-12.1)
[2018-10-21 20:15] LABS: Activated Partial Thrombo Time 29.5 Seconds (26.0-36.0)
[2018-10-21 20:25] LABS: Calcium 8.8 mg/dL (8.6-10.3); Magnesium 1.7 mg/dL (1.6-2.6); Potassium 3.6 mEq/L (3.5-5.1)
[2018-10-21 21:16] LABS: Troponin I 0.09 ng/mL (< 0.04)
[2018-10-21 21:32] LABS: Thyroid Stimulating Hormone 4.093 mcIU/mL (0.340-5.600)
--- NOTE | 2018-10-21 21:44 | Emergency Department Note ---
Disposition Clinical Impression: Atrial fibrillation with rapid ventricular response Disposition: Admitted As Inpatient Condition: Good Referrals: Lulu Kearney MD [Primary Care Provider] - Time of Disposition: 21:45 Arrhythmia/Palpitations HPI - General Chief Complaint: ED Arrhythmia/Palpitations Stated Complaint: rapid heart rate Time Seen by Provider: 10/21/18 19:10 Source: patient, EMS Limitations: no limitations - History of Present Illness HPI Narrative: Patient is a 78-year-old female presents to emergency department with chief complaint of fast heart rate. Patient was sent from a local [facility] facility after they measured her heart rate today and it was 150. The patient states she currently has no complaints. Patient is currently not on anticoagulants nor is currently being treated for atrial fibrillation. In review the patient's records there does appear to be an old EKG that does show an episode of atrial fibrillation but as he appears to be isolated 1 compared to her previous ones - Related Data Home Medications Medication Instructions Recorded Confirmed Tamsulosin [Flomax] 0.4 mg PO DAILY 07/27/15 10/13/18 Albuterol Sulfate [Proair Hfa] 2 puff IH Q4H PRN 03/06/18 10/13/18 Amantadine HCl [Amantadine] 100 mg PO TID 03/06/18 10/13/18 Atorvastatin [Lipitor] 40 mg PO DAILY 03/06/18 10/13/18 Budesonide/Formoterol 160/4.5 2 puff IH BID 03/06/18 10/13/18 [Symbicort 160/4.5] Cilostazol [Pletal] 100 mg PO BID 03/06/18 10/13/18 Citalopram [CeleXA] 20 mg PO DAILY 03/06/18 10/13/18 Furosemide [Lasix] 40 mg PO DAILY 03/06/18 10/13/18 risperiDONE [Risperidone] 1 mg PO BID 03/06/18 10/13/18 Potassium Chloride 10 meq PO DAILY 10/13/18 10/13/18 Previous Rx's Medication Instructions Recorded Tramadol HCl [Ultram] 50 mg PO TID PRN 7 Days #21 tab 10/06/18 Doxycycline Hyclate 100 mg PO BID #14 tablet 10/14/18 Allergies Allergy/AdvReac Type Severity Reaction Status Date / Time adhesive Allergy Rash Verified 08/12/18 09:43 bupropion Allergy Rash Verified 08/12/18 09:43 aripiprazole [From Abilify] AdvReac Shakiness Verified 08/12/18 09:43 All systems ED: reviewed and negative except as stated. Past Medical History - Past Medical History Attestation: Yes The following information was validated with the patient. Medical history: Reports: cancer, COPD, CVA, hyperlipidemia, hypertension, TIA Surgical history: Reports: appendectomy, hysterectomy Psychiatric history: Reports: depression - Social History Smoking Status: Current every day smoker Smokeless Tobacco Status: No Alcohol use: Reports: none Drug use: Reports: none Physical Exam General: Conversant and pleasant interactive and nontoxic. Head: Normocephalic/atraumatic Eyes:PERRLA, EOMI, no conjunctivitis Nares: Without d/c. Ears: No erythema or d/c noted. Oralpharnyx: P&MMM noted, Neck: Supple, no JVD or CADASTRAL ENGINEER noted. Cardovascular: Irregularly irregular tachycardic rhythm without murmur, brisk capillary refill, no peripheral edema. Lungs: Clear to ascultation bilaterally, non-labored Abd: Soft nontender, Non Distended, no guarding, no rebound. : Defered Extremities: moves all extremities equally Neuro: AOx3, no obvious gross neuro deficit Psych: Normal Affect Derm: No rash noted - General Limitations: no limitations General appearance: alert, in no apparent distress Course Vital Signs Temperature 97.9 F 10/21/18 19:03 Pulse Rate 152 10/21/18 19:03 Respiratory Rate 18 10/21/18 19:03 Blood Pressure 129/77 10/21/18 19:03 O2 Sat by Pulse Oximetry 97 10/21/18 19:03 Temperature 97.9 F 10/21/18 19:03 Pulse Rate 134 10/21/18 20:54 Respiratory Rate 18 10/21/18 20:54 Blood Pressure 141/83 10/21/18 20:54 O2 Sat by Pulse Oximetry 95 10/21/18 20:54 Oxygen Delivery Oxygen Delivery Nasal Cannula Arrhythmia/Palpitations - Lab Data Result diagrams: 10/21/18 19:52 10/21/18 19:52 Lab Results 10/21/18 10/21/18 10/21/18 Range/Units 19:52 19:52 19:52 WBC 7.9 (4.3-11.1) K/mcL RBC 3.61 L (3.82-4.97) M/mcL Hgb 11.4 L (11.5-15.4) g/dL Hct 34.5 L (35.3-44.9) % MCV 95.6 (83.0-100.0) fL MCH 31.6 (28.0-33.3) pg MCHC 33.0 (31.6-35.5) g/dL RDW 13.6 (11.5-14.5) % Plt Count 197 (140-400) K/mcL MPV 9.6 (9.4-12.4) fL Immature Gran % 0.4 (0-4) % Seg Neutrophils % 66.1 % Lymphocytes % 16.8 % Monocytes % 11.3 % Eosinophils % 5.1 % Basophils % 0.3 % Neutrophils # 5.2 (1.6-8.9) K/mcL Lymphocytes # 1.3 (0.6-4.6) K/mcL Monocytes # 0.9 (0.0-1.3) K/mcL Eosinophils # 0.4 (0.0-0.6) K/mcL Basophils # 0.0 (0.0-0.2) K/mcL PT 11.9 (9.4-12.1) Seconds INR 1.1 APTT 29.5 (26.0-36.0) Seconds Sodium 137 (136-145) mEq/L Potassium 3.6 (3.5-5.1) mEq/L Chloride 100 (98-107) mEq/L Carbon Dioxide 30 H (23-29) mEq/L BUN 35 H (8-23) mg/dL Creatinine 1.43 H (0.60-1.20) mg/dL Est GFR ( Amer) 43 L (> 60) Est GFR (Non-Af Amer) 36 L (> 60) BUN/Creatinine Ratio 24 (6-26) Glucose 157 H (70-105) mg/dL Calculated Osmolality 295 (280-300) Calcium 8.8 (8.6-10.3) mg/dL Magnesium 1.7 (1.6-2.6) mg/dL Troponin I 0.09 H* (< 0.04) ng/mL TSH 4.093 (0.340-5.600) mcIU/mL Critical Care Time Critical Care Time: Yes Total Critical Care Time: 30 Attestation: The high probability of a clinically significant, sudden or life threatening deterioration of the cardio vascular system(s) required my full and direct attention, intervention and personal management. The aggregate critical care time was 30 minutes. This time is in addition to time spent performing reported procedures but includes the following: Management of vasoactive drugs to control heart rate
[2018-10-21] MEDS ORDERED: 0.9 % Sodium Chloride 1,000 ML IVC SCH (21:45)
[2018-10-21] MEDS ORDERED: *HR* Heparin 5,000 UNIT/ML VIAL SQ SCH (23:45)
[2018-10-21] MEDS ORDERED: Naloxone 0.4 MG/ML INJ IVP PRN ×2 (23:46)
[2018-10-21] MEDS ORDERED: traMADol 50 MG TABLET PO PRN (23:55)
--- NOTE | 2018-10-22 00:12 | Internal Med History&Physical ---
<Noah Suazo S - Last Filed: 10/22/18 05:41> Date of Encounter: 10/22/18 Time of Encounter: 23:00 Internal Medicine - H&P: HPI Chief complaint: Shortness of breath Admitted From: Long-term Nursing Facility Plans for Post Hospital Care: [facility] History of present illness: Ms. Butler is a 78 year old female with PMHx of lung CA on chemotherapy, HTN, HLD, PVD, COPD, and depression who presents from shelter care facility to [facility] for fast heart rate. Patient had a routine vitals assessment at her nursing facility, and was brought to ED with heart rate in 150s. Patient was afebrile, tachycardic, normotensive, and saturating at 97% on 2L in ED. EKG showed evidence of atrial fibrillation. Patient was given IV push of cardizem, then started on a cardizem drip. She was admitted for afib with RVR. Patient is doing well on my exam. She does admit to shortness of breath, but it's not different from her baseline with COPD. She denies chest pain, palpitations, dizziness, fatigue, cough, nausea, vomiting, changes in bowel/bladder habits. She was recently admitted for syncope on 10/13/18. EKG showed no acute ischemic changes, carotid US showed non-stenotic plaques, brain MRI showed moderate chronic microvascular ischemic disease. She was sent to LTC facility for rehab. She was also taking doxycycline for left leg cellulitis during that admission, today was last day of antibiotics. Patient smokes 1/2 PPD, denies alcohol and drug use. She does have a history of left lung cancer s/p partial resection 4-5 years ago, with resurgence of cancer in the right lung, currently on chemotherapy. Past Med Surg Social Fam HX - Past Medical History Medical history: cancer, COPD, CVA, hyperlipidemia, hypertension, TIA Additional medical history: PVD, tardive dyskinesia, (lung cancer) Psychiatric history: depression - Past Surgical History Surgical History: hysterectomy Additional surgical history: R hip replacement 2013 - Social History Smoking Status: Current every day smoker Smokeless Tobacco Status: No Alcohol use: none Drug use: none - Family History Mother Living Status: Hx Family Respiratory Disorders: Yes (lung cancer) Hx Family Cancer: Yes Hx Family GI Disorders: Yes (bowel cancer) Internal Medicine - H&P: Meds Tamsulosin [Flomax] 0.4 mg PO DAILY 07/27/15 [History] Albuterol Sulfate [Proair Hfa] 2 puff IH Q4H PRN 03/06/18 [History] Amantadine HCl [Amantadine] 100 mg PO TID 03/06/18 [History] Atorvastatin [Lipitor] 40 mg PO DAILY 03/06/18 [History] Budesonide/Formoterol 160/4.5 [Symbicort 160/4.5] 2 puff IH BID 03/06/18 [History] Cilostazol [Pletal] 100 mg PO BID 03/06/18 [History] Citalopram [CeleXA] 20 mg PO DAILY 03/06/18 [History] Furosemide [Lasix] 40 mg PO DAILY 03/06/18 [History] risperiDONE [Risperidone] 1 mg PO BID 03/06/18 [History] Tramadol HCl [Ultram] 50 mg PO TID PRN 7 Days #21 tab 10/06/18 [Rx] Potassium Chloride 10 meq PO DAILY 10/13/18 [History] Doxycycline 100 mg PO BID 10/21/18 [History] Allergy/AdvReac Type Severity Reaction Status Date / Time adhesive Allergy Rash Verified 08/12/18 09:43 bupropion Allergy Rash Verified 08/12/18 09:43 aripiprazole [From Abilify] AdvReac Shakiness Verified 08/12/18 09:43 All Systems PM: A 10-system review of systems was performed and is negative for pertinent findings except as documented above in the HPI. - Constitutional Vitals: Temp Pulse Resp BP Pulse Ox 97.8 F 136 17 159/73 95 10/21/18 23:48 10/21/18 23:48 10/21/18 23:48 10/21/18 23:48 10/21/18 23:48 General appearance: Present: A&O X 3, no acute distress Exam: Patient in no distress, resting comfortably - Eye Eye exam: Absent: conjunctival injection - Respiratory Respiratory exam: Present: decreased breath sounds - Cardiovascular Cardiovascular exam: Present: irregular rhythm, tachycardia - GI/Abdominal GI/Abdominal exam: Present: soft. Absent: tenderness - Extremities Exam Extremities exam: Present: tenderness (leg tenderness bilaterally), warm, radial pulses palpable and symmetrical - Expanded Lower Extremities Exam Hip exam: Present: swelling (+2-3 pitting edema in bilateral lower extremities) - Neurological Exam Neurological exam: Present: alert, oriented X3 - Psychiatric Psychiatric exam: Present: normal affect, normal mood - Skin Skin exam: Present: dry, warm. Absent: pallor Internal Med - H&P Results - Labs CBC & Chem 7: 10/22/18 01:17 10/22/18 01:17 Labs: Short CBC 10/21/18 Range/Units 19:52 WBC 7.9 (4.3-11.1) K/mcL Hgb 11.4 L (11.5-15.4) g/dL Hct 34.5 L (35.3-44.9) % Plt Count 197 (140-400) K/mcL Neutrophils # 5.2 (1.6-8.9) K/mcL BMP 10/21/18 19:52 Sodium 137 Potassium 3.6 Chloride 100 Carbon Dioxide 30 H BUN 35 H Creatinine 1.43 H Glucose 157 H Calcium 8.8 Cardiac Enzymes 10/21/18 Range/Units 19:52 Troponin I 0.09 H* (< 0.04) ng/mL - Impressions ITS Impressions Chest X-Ray 10/21/18 19:17 IMPRESSION: Negative low lung volume study D/ / Pablo Robbins MD / Pablo Robbins MD Interpreting Provider: Pablo Robbins MD - Assessment and Plan (1) Atrial fibrillation with rapid ventricular response Current Visit: Yes Status: Acute Assessment and plan: Patient with new onset atrial fibrillation Heart rate in 150s in shelter care facility, now 130s Echo (10/14) showed mildly dilated right atrium May be secondary to atrial dilation vs PE (given lung cancer) vs ischemia Patient given IV push of cardizem in ED, now on cardizem drip for rate control Ordered 100 ml/hr IV normal saline Heparin drip for anticoagulation Once kidney function improves, recommend CTA vs VQ scan to rule out PE Cardiology consulted (2) Elevated troponin Current Visit: No Status: Chronic Assessment and plan: Patient with troponin of 0.09, baseline around 0.1 Denies chest pain Will trend (3) Acute kidney injury superimposed on chronic kidney disease Current Visit: Yes Status: Acute Assessment and plan: Patient with creatinine of 1.43, baseline of 1.3 Patient takes daily lasix for chronic lower extremity swelling Ordered IV fluid hydration Repeat BMP in AM, may need to hold lasix (4) Venous stasis of lower extremity Current Visit: No Status: Acute Assessment and plan: Patient takes daily lasix for chronic lower extremity edema Continued home medication May need to hold if kidney function doesn't improve (5) Lung cancer Current Visit: No Status: Chronic Assessment and plan: Patient with history of left lung cancer s/p partial resection 4-5 years ago She now admits to cancer in right lung and is currently receiving chemotherapy Qualifiers: Laterality: right Lung location: unspecified part of lung Qualified Code(s): C34.91 - Malignant neoplasm of unspecified part of right bronchus or lung (6) Depression Current Visit: Yes Status: Acute Assessment and plan: Normal mood and affect Continued home medications (7) HLD (hyperlipidemia) Current Visit: Yes Status: Acute Assessment and plan: Continued home medication (8) DVT prophylaxis Current Visit: No Status: Acute Assessment and plan: Heparin drip - Time Spent With Patient Total time spent is greater than 50% in coordination of care (as documented) at patient's floor/unit and/or counseling patient: <Tammi Martin - Last Filed: 10/22/18 07:21> Date of Encounter: 10/21/18 Internal Medicine - H&P: HPI History of present illness: Ms. Butler is a 78 year old female All Systems PM: A 10-system review of systems was performed and is negative for pertinent findings except as documented above in the HPI. - Constitutional Vitals: Temp Pulse Resp BP Pulse Ox 97.8 F 136 17 159/73 95 10/21/18 23:48 10/21/18 23:48 10/21/18 23:48 10/21/18 23:48 10/21/18 23:48 Internal Med - H&P Results - Labs CBC & Chem 7: 10/22/18 01:17 10/22/18 01:17 Labs: Short CBC 10/21/18 10/22/18 Range/Units 19:52 01:17 WBC 7.9 7.1 (4.3-11.1) K/mcL Hgb 11.4 L 10.5 L (11.5-15.4) g/dL Hct 34.5 L 32.3 L (35.3-44.9) % Plt Count 197 176 (140-400) K/mcL Neutrophils # 5.2 (1.6-8.9) K/mcL BMP 10/21/18 19:52 Sodium 137 Potassium 3.6 Chloride 100 Carbon Dioxide 30 H BUN 35 H Creatinine 1.43 H Glucose 157 H Calcium 8.8 Cardiac Enzymes 10/21/18 Range/Units 19:52 Troponin I 0.09 H* (< 0.04) ng/mL - Impressions ITS Impressions Chest X-Ray 10/21/18 19:17 IMPRESSION: Negative low lung volume study D/ / Pablo Robbins MD / Pablo Robbins MD Interpreting Provider: Pablo Robbins MD - Assessment and Plan (1) Lung cancer Current Visit: No Status: Chronic Qualifiers: Laterality: right Lung location: unspecified part of lung Qualified Code(s): C34.91 - Malignant neoplasm of unspecified part of right bronchus or lung (2) Elevated troponin Current Visit: No Status: Chronic (3) DVT prophylaxis Current Visit: No Status: Acute (4) Venous stasis of lower extremity Current Visit: No Status: Acute (5) Atrial fibrillation with rapid ventricular response Current Visit: Yes Status: Acute (6) Acute kidney injury superimposed on chronic kidney disease Current Visit: Yes Status: Acute (7) Depression Current Visit: Yes Status: Acute (8) HLD (hyperlipidemia) Current Visit: Yes Status: Acute - Time Spent With Patient Total time spent is greater than 50% in coordination of care (as documented) at patient's floor/unit and/or counseling patient: - Attending Attestation I performed a history and physical examination of the patient and discussed her management with the resident. I reviewed the resident's note and agree with the assessment and plan of care. In short patient is a 78-year-old female with a past medical history of lung cancer currently on chemotherapy, hypertension, PVD, COPD who presented to the ED from her nursing facility after patient was found to have a fast heart rate. Of note patient was recently admitted and discharged from [facility] for evaluation of syncope. Workup included EKG which showed no acute ischemic changes, carotid US showed non-stenotic plaques, brain MRI showed moderate chronic microvascular ischemic disease and echo showed an EF of 60-65% with normal LV chamber size and function, mild concentric left ventricular hypertrophy and mild left ventricular diastolic dysfunction. On arrival patient was found to have a heart rate in the 150s. Review of EKG shows narrow complex tachycardia consistent with SVT. No ischemic changes were noted. Remainder patient's vitals were stable. Patient is on 3 L home oxygen at baseline. Review of labs were relatively unremarkable. Patient had a slight elevation in her creatinine and a troponin of 0.09 which appears to be chronic. On my assessment patient was hemodynamically stable, currently on Cardizem drip with heart rate in the 120s. Patient denied any chest pain or shortness of breath. Physical exam notable for irregularly irregular rhythm. Anticoagulation had been discussed by ED team however at this time patient does not appear to be in atrial fibrillation. We will continue Cardizem drip for now. We will continue to trend troponin. Appreciate cardiology input. Addendum: Repeat EKG was obtained which appears to be more consistent with atrial fibrillation. Patient started on heparin drip. Will need further discussion on risks/benefits of anticoagulation given patient's recent history of syncope.
[2018-10-22] MEDS ORDERED: *HR* Heparin 5,000 UNIT/ML VIAL IVP PRN ×2 (00:49)
[2018-10-22] MEDS ORDERED: Heparin 25,000 UNIT/250 ML D5W 25,000 UNIT/250 ML IV.SOLN IVC SCH (01:00)
[2018-10-22 01:30] LABS: Hematocrit 32.3 % (35.3-44.9); Hemoglobin 10.5 g/dL (11.5-15.4); Mean Corpuscular HGB Conc 32.5 g/dL (31.6-35.5); Mean Corpuscular Hemoglobin 31.1 pg (28.0-33.3); Mean Corpuscular Volume 95.6 fL (83.0-100.0); Mean Platelet Volume 9.2 fL (9.4-12.4); Platelet Count 176 K/mcL (140-400); Red Blood Count 3.38 M/mcL (3.82-4.97); Red Cell Distribution Width 13.5 % (11.5-14.5)
[2018-10-22 01:44] LABS: INR 1.1; Prothrombin Time 12.3 Seconds (9.4-12.1)
[2018-10-22 01:52] LABS: Calcium 8.5 mg/dL (8.6-10.3); Potassium 3.6 mEq/L (3.5-5.1)
[2018-10-22] MEDS: Budesonide/Formoterol 160/4.5 1 PUFF INH IH SCH ×2 (08:10→20:51)
[2018-10-22] MEDS: 0.9 % Sodium Chloride 1,000 ML IVC SCH ×2 (08:11→10:31)
[2018-10-22] MEDS: risperiDONE 1 MG TABLET PO SCH ×2 (08:13→20:42)
[2018-10-22 08:43] LABS: Heparin anti-factor XA UFH 0.58 IU/mL (0.30-0.70)
[2018-10-22] MEDS ORDERED: Furosemide 40 MG TABLET PO SCH (09:00)
--- NOTE | 2018-10-22 11:04 | Cardiology Consult Note ---
Date of Encounter: 10/22/18 Time of Encounter: 11:02 Assessment and Plan (1) PSVT (paroxysmal supraventricular tachycardia) Current Visit: Yes Status: Acute Patient admitted with a diagnosis of atrial fibrillation, but no atrial fibrillation observed on ECGs provided and telemetry. PACs, atrial runs, and episode of SVT (atrial tachycardia) noted. Currently, she is in sinus rhythm. Based on these findings, there is no need for long-term anticoagulation. Okay to stop heparin drip and changed to DVT prophylaxis dosing. We will change diltiazem to PO. No further inpatient cardiology recommendations are necessary. Recommend follow-up as outpatient. As always, thank you for allowing me to participate in care of your patients. Please call with any questions or concerns. Discussion w patient/family: The assessment and plan as outlined above was discussed with the patient and/or family members who expressed understanding and agreement. All questions were answered. Thank you for involving us in the care of your patient. Please call with any questions. History of Present Illness Consult date: 10/22/18 Requesting physician: Noah Suazo Consult reason: Arrhythmia Chief complaint: Arrhythmia History of present illness: Ms. Butler is a 78 year old female with a history of lung cancer status post resection with recurrence of lung cancer on chemotherapy. Comorbidities include essential HTN, hyperlipidemia, and COPD. She was recently discharged [facility] nursing facility. She returns to the hospital with arrhythmia concerns. She was admitted with a diagnosis of atrial fibrillation. However, all ECGs were reviewed as well as telemetry. Findings demonstrated sinus rhythm with PACs, atrial runs. One ECG demonstrates SVT, which appears to be atrial tachycardia. No atrial fibrillation observed. Chronic rhythm. She describes baseline to pain or discomfort. No lighth eadedness, near-syncope, or syncope. Generalized debility noted. Past Med Surg Social Fam HX - Past Medical History Medical history: cancer, COPD, CVA, hyperlipidemia, hypertension, TIA Additional medical history: PVD, tardive dyskinesia, (lung cancer) Psychiatric history: depression - Past Surgical History Surgical History: hysterectomy Additional surgical history: R hip replacement 2013 - Social History Smoking Status: Current every day smoker Smokeless Tobacco Status: No Alcohol use: none Drug use: none - Family History Mother Living Status: Hx Family Respiratory Disorders: Yes (lung cancer) Hx Family Cancer: Yes Hx Family GI Disorders: Yes (bowel cancer) Medications and Allergies Tamsulosin [Flomax] 0.4 mg PO DAILY 07/27/15 [History] Albuterol Sulfate [Proair Hfa] 2 puff IH Q4H PRN 03/06/18 [History] Amantadine HCl [Amantadine] 100 mg PO TID 03/06/18 [History] Atorvastatin [Lipitor] 40 mg PO DAILY 03/06/18 [History] Budesonide/Formoterol 160/4.5 [Symbicort 160/4.5] 2 puff IH BID 03/06/18 [History] Cilostazol [Pletal] 100 mg PO BID 03/06/18 [History] Citalopram [CeleXA] 20 mg PO DAILY 03/06/18 [History] Furosemide [Lasix] 40 mg PO DAILY 03/06/18 [History] risperiDONE [Risperidone] 1 mg PO BID 03/06/18 [History] Tramadol HCl [Ultram] 50 mg PO TID PRN 7 Days #21 tab 10/06/18 [Rx] Potassium Chloride 10 meq PO DAILY 10/13/18 [History] Doxycycline 100 mg PO BID 10/21/18 [History] Allergy/AdvReac Type Severity Reaction Status Date / Time adhesive Allergy Rash Verified 08/12/18 09:43 bupropion Allergy Rash Verified 08/12/18 09:43 aripiprazole [From Abilify] AdvReac Shakiness Verified 08/12/18 09:43 All Systems Review: The remainder of the systems were reviewed and are negative - Constitutional Constitutional: weakness - Cardiovascular Cardiovascular: as per HPI, other (Patient seems largely unaware of intermittent palpitations, arrhythmia.) - Respiratory Respiratory: other (Chronic shortness of breath.) Physical Examination Vital Signs, Last 4 Hours Temp Pulse Resp BP Pulse Ox 10/22/18 10:30 98.0 F 112 18 133/62 94 10/22/18 09:35 110 134/58 10/22/18 08:14 18 97 General: Conversant, No Apparent Distress, Other (Disheveled, poor historian) HEENT: Atraumatic, Normocephaly, Mucus Membranes Moist Neck: No JVD, Normal carotid pulses Cardiac: Other (Distant, but appears regular. No auscultated murmurs gallops or rubs.) Lungs: Other (Shallow breath sounds. No rales or rhonchi appreciated.) Neuro: Alert and responsive, No focal deficits noted, Other (Poor historian.) Abdomen: Soft, Non-Tender Skin: No rashes noted on visualized skin Musculoskeletal: No Chest Wall Tenderness Extremities: No Clubbing, No Cyanosis, No Edema Results 10/22/18 01:17 10/22/18 01:17 Lab Results 10/21/18 10/21/18 10/21/18 19:52 19:52 19:52 WBC 7.9 Hgb 11.4 L Hct 34.5 L Plt Count 197 INR 1.1 APTT 29.5 D-Dimer Sodium 137 Potassium 3.6 Chloride 100 Carbon Dioxide 30 H BUN 35 H Creatinine 1.43 H Glucose 157 H Calcium 8.8 Magnesium 1.7 Troponin I 0.09 H* B-Natriuretic Peptide TSH 4.093 10/22/18 10/22/18 10/22/18 01:17 01:17 01:17 WBC 7.1 Hgb 10.5 L Hct 32.3 L Plt Count 176 INR 1.1 APTT D-Dimer Sodium 139 Potassium 3.6 Chloride 101 Carbon Dioxide 30 H BUN 36 H Creatinine 1.41 H Glucose 137 H Calcium 8.5 L Magnesium Troponin I B-Natriuretic Peptide [facility] 10/22/18 10/22/18 10/22/18 01:17 01:17 07:36 WBC Hgb Hct Plt Count INR APTT 29.2 D-Dimer 5439 H Sodium Potassium Chloride Carbon Dioxide BUN Creatinine Glucose Calcium Magnesium Troponin I 0.09 H* B-Natriuretic Peptide TSH 10/22/18 10/22/18 08:37 08:37 WBC Hgb Hct Plt Count INR APTT D-Dimer Sodium Potassium Chloride Carbon Dioxide BUN Creatinine Glucose Calcium Magnesium 1.9 Troponin I B-Natriuretic Peptide 25 TSH - Imaging and Cardiology Echo: report reviewed - EKG Interpretation EKG results cardiology: personally reviewed Consult Discharge Plan - Plan Referrals: Lulu Kearney MD [Primary Care Provider] -
--- NOTE | 2018-10-22 11:36 | Electrocardiograph Report ---
[address] [place] [address] Test Date: 2018-10-21 Pat Name: Jyotsna Butler Department: [id number] Room: 2N06 Gender: F Director Of Finance: : 1940 Requested By: Nithin Clark Order Number: [id number] Reading MD: Hever Sarmiento Measurements Intervals [place] Rate: 151 P: 166 MI: 78 QRS: -9 QRSD: 79 T: -25 QT: 304 QTc: 482 Interpretive Statements Supraventricular tachycardia Inferior infarct, old Consider anterior infarct Electronically Signed On 10-22-2018 11:34:44 EDT by Hever Sarmiento
--- NOTE | 2018-10-22 12:20 | Event Note ---
Date of Encounter: 10/22/18 Time of Encounter: 10:10 Patient was examined and reviewed the note. Patient complained of leg pain and swelling and presented with shortness of breath with raised d-dimer therefore Doppler venous ultrasound ordered to rule out DVT and also VQ scan ordered to rule out PE as creatinine high therefore CT angiogram could not ordered. Will wait for cardiology opinion. Will continue course of doxycycline as it was started for possible cellulitis and lower extremity and as per patient she has taking 4 days of doxycycline but will confirm with senior living. Patient takes active chemotherapy therapy for lung cancer therefore will consider oncology consultation if needed Echo done in mpressions: LVEF 60-65%. Normal LV chamber size and function. Mild concentric left ventricular hypertrophy. Mild left ventricular diastolic dysfunction. Normal right ventricular structure and function. No evidence of pulmonary hypertension. No significant valvular dysfunction.
[2018-10-22] MEDS: Diltiazem CD (24hr) 120 MG CAPSULE PO SCH (12:24)
[2018-10-22] MEDS ORDERED: *HR* Heparin 5,000 UNIT/ML VIAL SQ SCH (14:00)
--- NOTE | 2018-10-22 15:53 | Oncology Inp Consult Note ---
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 She has 4 progressive lung lesions concerning for malignancy: 2 involving the right upper lobe, one involving the right lower lobe and one involving the left upper lobe near the aortic arch. Biopsy confirmed metastatic recurrence. Pembrolizumab initiated 05/14/2018 and s/p cycle #7 on 10/06/2018. CT imaging 07/30/2018 with a positive response to therapy, she is planned for repeat staging again first week of November. She does have LLE edema that was evaluated with venous doppler on 10/14/18 that was negative Plan: Next treatment scheduled for 10/27/18-keep appointment as outpatient for evaluation for treatment Case discussed with Dr. Blanco-do not suspect her tachycardia is related to adverse immune mediated effect (i.e. myocarditis, pericarditis), cardiology has no further recommendations and signed off Qualifiers: Laterality: left Qualified Code(s): C34.92 - Malignant neoplasm of unspecified part of left bronchus or lung (2) PSVT (paroxysmal supraventricular tachycardia) Status: Acute Assessment and plan: Evaluated by cardiology- notes reviewed and EKG appears more consistent with PACs, atrial runs, and episode of SVT Changing to PO cardizem HR around 105 on tele during assessment, overall appears to be improving Echo on 10/14/2018 LVEF 60-65%, mild concentric left ventricular hypertrophy, mild left ventricular diastolic dysfunction - Data of Consult Patient: known to practice within the last 3 years Consult date: 10/22/18 Requesting Physician: Tammi Martin MD Primary Care Provider: Lulu Kearney - Consult Narrative Reason for consult: adenocarcinoma of the left lower lobe History of present illness: Ms. Butler is a 78 year old female with history of COPD on 3L chronically, tardive dyskinesia, tobacco abuse and stage IV (TIbN0) moderately differentiated adenocarcinoma of the left lower lobe status post lobectomy 09/06/2014. She has 4 progressive lung lesions concerning for malignancy: 2 involving the right upper lobe, one involving the right lower lobe and one involving the left upper lobe near the aortic arch. Biopsy confirmed metastatic recurrence. TPS 50% consistent with high PD-L1 expression. P53 mutated. No other actionable mutation by next generation sequencing. Pembrolizumab initiated 05/14/2018 and s/p cycle #7 on 10/06/2018. CT imaging 07/30/2018 with a positive response to therapy, she is planned for repeat staging again in 6 weeks. [facility] to [place] [facility] for tachycardia with heart rate in 150s. Patient was afebrile, tachycardic, normotensive, and saturating at 97% on 2L in ED. According to ER notes she was noted to have atrial fibrilliation with RVR and given IV push of cardizem, then started on a cardizem drip. She was admitted with cardiology consultation and cardiology review of EKG/telemetry does not appear consistent with A-fib. She was recently admitted for syncope and LLE cellulitis (recently finished round of doxycycline) on 10/13/18. Ms. Butler reports no change in her baseline SOB. She denies chest pain, pain with inspiration, fever, headache, dizziness, nausea, vomiting or bowel habit changes. She has no physical complaints. She appears fatigued and falls asleep during conversation, requiring redirection at times/somewhat of a poor historian. She is alert and oriented. Past Med Surg Social Fam HX - Past Medical History Medical history: cancer, COPD, CVA, hyperlipidemia, hypertension, TIA Additional medical history: PVD, tardive dyskinesia, (lung cancer) Psychiatric history: depression - Past Surgical History Surgical History: hysterectomy Additional surgical history: R hip replacement 2013 - Social History Smoking Status: Current every day smoker Smokeless Tobacco Status: No Alcohol use: none Drug use: none - Family History Mother Living Status: Hx Family Respiratory Disorders: Yes (lung cancer) Hx Family Cancer: Yes Hx Family GI Disorders: Yes (bowel cancer) Medications and Allergies Tamsulosin [Flomax] 0.4 mg PO DAILY 07/27/15 [History] Albuterol Sulfate [Proair Hfa] 2 puff IH Q4H PRN 03/06/18 [History] Amantadine HCl [Amantadine] 100 mg PO TID 03/06/18 [History] Atorvastatin [Lipitor] 40 mg PO DAILY 03/06/18 [History] Budesonide/Formoterol 160/4.5 [Symbicort 160/4.5] 2 puff IH BID 03/06/18 [History] Cilostazol [Pletal] 100 mg PO BID 03/06/18 [History] Citalopram [CeleXA] 20 mg PO DAILY 03/06/18 [History] Furosemide [Lasix] 40 mg PO DAILY 03/06/18 [History] risperiDONE [Risperidone] 1 mg PO BID 03/06/18 [History] Tramadol HCl [Ultram] 50 mg PO TID PRN 7 Days #21 tab 10/06/18 [Rx] Potassium Chloride 10 meq PO DAILY 10/13/18 [History] Doxycycline 100 mg PO BID 10/21/18 [History] Allergy/AdvReac Type Severity Reaction Status Date / Time adhesive Allergy Rash Verified 08/12/18 09:43 bupropion Allergy Rash Verified 08/12/18 09:43 aripiprazole [From [employer]] AdvReac Shakiness Verified 08/12/18 09:43 Constitutional: Present: fatigue. Absent: anorexia, chills, fever(s), frequent falls, headache(s), weight loss Eyes: Absent: change in vision Nose, mouth and throat: Absent: dysphagia, odynophagia Cardiovascular: Present: dyspnea on exertion, rapid heart rate. Absent: chest pain, palpitations Respiratory: Present: cough, dyspnea (at baseline). Absent: pain on inspiration, pain with cough Gastrointestinal: Absent: abdominal pain, change in bowel habits, nausea, vomiting Genitourinary: Absent: dysuria, hematuria Integumentary: Absent: rash, wounds Neurological: Absent: dizziness, focal weakness Hematologic/Lymphatic: Present: as per HPI Oncology - Exam - Constitutional General appearance: cooperative, no acute distress, obese, no febrile - Head Head exam: Present: atraumatic - ENT ENT exam: Present: mucous membranes moist, normal oropharynx - Respiratory Respiratory exam: Present: decreased breath sounds, CTAB. Absent: respiratory distress - Cardiovascular Additional comments: regularly irregular with PACs noted on tele monitor - GI/Abdominal GI/Abdominal exam: Present: distended (slightly tender to deep palpation), kolby l bowel sounds, soft. Absent: tenderness - Extremities Exam Extremities exam: Absent: calf tenderness Additional comments: LLE non pitting edema - Neurological Exam Neurological exam: Present: alert, oriented X3, no focal deficits, strengths equal and symetr throughout Additional comments: drowsy but responds well to voice - Psychiatric Psychiatric exam: Present: flat affect - Skin Skin exam: Present: dry, intact, normal color, warm Consult Discharge Plan - Plan Referrals: Lulu Kearney MD [Primary Care Provider] - Inpatient Charges Provider: Dr. Luiz Fernandez <Sylvain Fernandez - Last Filed: 10/23/18 08:02> Date of Encounter: 10/23/18 - Data of Consult Requesting Physician: Tammi Martin MD Primary Care Provider: Lulu Kearney - Attending Attestation Patient with metastatic lung cancer on immunotherapy with keytruda, , per family missed prior traetment-hospitalized for SOB tachycardia, noted in ED with A fib/RVR, on cardizem, anticoagulation. Cardiology input appreciated. HR is controlled during exam, patient looks comfortable without significant complaints while resting. She is planned to continue Rx possibly next wk if she is stable and be able to go home this wk. Patient, family discussed above plan. VQ low probability of PE I examined this patient and my medical decision-making was reviewed with the Advanced Practice Nurse, Saumya Live. I agree with the documented findings, disposition and treatment plan as described except to the extent set forth below.
--- NOTE | 2018-10-22 16:36 | Electrocardiograph Report ---
[address] [address] Test Date: 2018-10-22 Pat Name: Jyotsna Butler Department: 110 Room: 2N06 Gender: F [place] Assistant: TYLOR : 1940 Requested By: Tammi Martin Order Number: [id number] Reading MD: Braulio Farley Measurements Intervals [place] Rate: 105 P: AL: 0 QRS: -4 QRSD: 89 T: 88 QT: 306 QTc: 367 Interpretive Statements SINUS TACHYCARDIA NONSPECIFIC T-WAVE ABNORMALITY ABNORMAL RHYTHM ECG Electronically Signed On 10-22-2018 16:35:16 EDT by Braulio Farley
[2018-10-22] MEDS: *HR* Heparin 5,000 UNIT/ML VIAL SQ SCH (20:42)
[2018-10-22] MEDS: Doxycycline 100 MG CAPSULE PO SCH (20:42)
[2018-10-23 03:51] LABS: Basophils % 0.2 %; Eosinophils # 0.4 K/mcL (0.0-0.6); Eosinophils % 6.1 %; Hemoglobin 9.7 g/dL (11.5-15.4); Immature Granulocytes % 0.3 % (0-4); Mean Corpuscular HGB Conc 32.3 g/dL (31.6-35.5); Mean Corpuscular Hemoglobin 31.1 pg (28.0-33.3); Mean Corpuscular Volume 96.2 fL (83.0-100.0); Mean Platelet Volume 9.6 fL (9.4-12.4); Monocytes # 0.6 K/mcL (0.0-1.3); Monocytes % 10.2 %; Platelet Count 175 K/mcL (140-400); Red Blood Count 3.12 M/mcL (3.82-4.97); Red Cell Distribution Width 13.6 % (11.5-14.5); Segmented Neutrophils % 66.2 %
[2018-10-23 04:11] LABS: Calcium 8.7 mg/dL (8.6-10.3); Magnesium 1.8 mg/dL (1.6-2.6); Potassium 3.5 mEq/L (3.5-5.1)
[2018-10-23] MEDS: *HR* Heparin 5,000 UNIT/ML VIAL SQ SCH ×2 (05:53→16:23)
[2018-10-23] MEDS: Budesonide/Formoterol 160/4.5 1 PUFF INH IH SCH (08:08)
[2018-10-23] MEDS: Doxycycline 100 MG CAPSULE PO SCH (08:11)
[2018-10-23] MEDS: risperiDONE 1 MG TABLET PO SCH (08:11)
[2018-10-23] MEDS: Diltiazem CD (24hr) 120 MG CAPSULE PO SCH (08:12)
[2018-10-23] MEDS ORDERED: Diltiazem SR (12hr) 60 MG CAPSULE PO ONE (09:51)
--- NOTE | 2018-10-23 12:04 | Discharge Summary ---
- NOTES TO OUTPATIENT PROVIDER Notes to Outpatient Provider: Cardiology f/u in 1 week. Follow-up with PCP in 3-5 days-further adjustment in Lasix dose as decreased 20 mg daily upon discharge due to raised creatinine on admission. Diltiazem dose can be titrated based on response. Follow-up with urologist in 1 week-for void trial. Patient will be discharged on L[place]ola catheter-Loyola catheter care Orders not resulted at time of discharge: Pending orders 10/24/18 04:00 BMP [Basic Metabolic Panel] AM 0400 Complete Blood Count [HEME] AM 0400 Magnesium AM 0400 10/25/18 04:00 BMP [Basic Metabolic Panel] AM 0400 Complete Blood Count [HEME] AM 0400 Date of Encounter: 10/23/18 Time of Encounter: 11:59 - Discharge Diagnosis (1) PSVT (paroxysmal supraventricular tachycardia) Priority: Primary Status: Acute Assessment and Plan: PSVT .new onset Consulted cardiology- of note,PACs, atrial runs, and episode of SVT (atrial tachycardia) noted.Currently, she is in sinus rhythm. Based on these findings, there is no need for long-term anticoagulation. Diltiazem 120 mg by mouth daily started initially but patient is still has slight tachycardia with mild elevation of blood pressure therefore increased dose 180 mg by mouth daily. Better controlled now. Initially heparin drip was initiated but discontinued later Results shortness of breath-most likely due to A. fib with RVR. VQ scan with low probability. Doppler venous ultrasound with no acute DVT or SVT Echo (10/14) showed mildly dilated right atrium May be secondary to atrial dilation vs PE (given lung cancer) vs ischemia Normal creatinine level now (2) Urine retention Priority: Primary Status: Acute Assessment and Plan: Acute urinary retention almost 4 L. Loyola catheter inserted. Flomax is started. Discussed with urologist about further plan of care who is happy to see patient in his office one week for void trial. will plan to send patient on Loyola catheter. (3) Lung cancer Priority: Secondary Status: Chronic Assessment and Plan: Patient with history of left lung cancer s/p partial resection 4-5 years ago She now admits to cancer in right lung and is currently receiving chemotherapy Consulted oncologist-okay to discharge patient from oncology standpoint and advised to keep appointment as outpatient for evaluation for the treatment on 10/27/2018. Qualifiers: Laterality: right Lung location: unspecified part of lung Qualified Code(s): C34.91 - Malignant neoplasm of unspecified part of right bronchus or lung (4) Elevated troponin Priority: Primary Status: Chronic Assessment and Plan: Patient with troponin of 0.09, baseline around 0.1. Could be demand ischemia due to rapid heart rate. Does not appear ischemic cardiac event. Cardiology consulted and signed off. No further cardiac intervention advice. Denies chest pain (5) Venous stasis of lower extremity Priority: Secondary Status: Acute Assessment and Plan: Patient takes daily lasix for chronic lower extremity edema Continued home medication Doppler venous ultrasound negative. Doxycycline was started by her PCP for possible cellulitis in lower extremities- on my examination no sign of cellulitis but advised to complete the course of doxycycline as per pcp (6) Acute kidney injury superimposed on chronic kidney disease Priority: Primary Status: Acute Assessment and Plan: Improved. Lasix was on hold during the hospital stay. Will discharge patient on lower dose of Lasix 20 mg by mouth daily with further monitoring of BMP with the help of PCP and further adjustment in Lasix dose (7) Depression Priority: Secondary Status: Acute Assessment and Plan: Normal mood and affect Continued home medications Qualifiers: Depression Type: unspecified Qualified Code(s): F32.9 - Major depressive disorder, single episode, unspecified (8) HLD (hyperlipidemia) Priority: Secondary Status: Acute Assessment and Plan: Continued home medication Qualifiers: Hyperlipidemia type: unspecified Qualified Code(s): E78.5 - Hyperlipidemia, unspecified (9) Generalized weakness Priority: Primary Status: Acute Assessment and Plan: Patient has been generalized weak and is the reason in inpatient rehabilitation. Continue PT OT Hospital course: Ms. Butler is a 78 year old female patient got transferred from [facility] to [facility] for further evaluation of shortness of breath and tachycardia. Patient was admitted on telemetry bed and consulted acute care nursing assistant for possible A. fib with RVR. Initially Cardizem drip was restarted. Please see detail in diagnosis section of discharge summary At the time of discharge patient is almost back to her baseline requiring 3 L oxygen by nasal cannula, hemodynamically stable. Patient needs to follow with PCP cardiology and urologist mentioned Discharge discussed with: patient, nurse, social work, labor relations consultant - Time Spent with Patient Total time spent providing and/or coordinating discharge services: - Discharge Medications Prescriptions: New Diltiazem CD (24hr) [Cardizem CD] 180 mg PO DAILY cap.er.24h Continued Tamsulosin [Flomax] 0.4 mg PO DAILY Citalopram [CeleXA] 20 mg PO DAILY Amantadine HCl [Amantadine] 100 mg PO TID risperiDONE [Risperidone] 1 mg PO BID Atorvastatin [Lipitor] 40 mg PO DAILY Albuterol Sulfate [Proair Hfa] 2 puff IH Q4H PRN PRN Reason: Shortness Of Breath Budesonide/Formoterol 160/4.5 [Symbicort 160/4.5] 2 puff IH BID Cilostazol [Pletal] 100 mg PO BID Tramadol HCl [Ultram] 50 mg PO TID PRN 7 Days #21 tab PRN Reason: Pain Doxycycline 100 mg PO BID #0 Changed Furosemide [Lasix] 20 mg PO DAILY #0 Discontinued Potassium Chloride 10 meq PO DAILY Home Medications: Tamsulosin [Flomax] 0.4 mg PO DAILY 07/27/15 [History] Albuterol Sulfate [Proair Hfa] 2 puff IH Q4H PRN 03/06/18 [History] Amantadine HCl [Amantadine] 100 mg PO TID 03/06/18 [History] Atorvastatin [Lipitor] 40 mg PO DAILY 03/06/18 [History] Budesonide/Formoterol 160/4.5 [Symbicort 160/4.5] 2 puff IH BID 03/06/18 [History] Cilostazol [Pletal] 100 mg PO BID 03/06/18 [History] Citalopram [CeleXA] 20 mg PO DAILY 03/06/18 [History] risperiDONE [Risperidone] 1 mg PO BID 03/06/18 [History] Tramadol HCl [Ultram] 50 mg PO TID PRN 7 Days #21 tab 10/06/18 [Rx] Diltiazem CD (24hr) [Cardizem CD] 180 mg PO DAILY cap.er.24h 10/23/18 [Rx] Doxycycline 100 mg PO BID #0 10/23/18 [Rx] Furosemide [Lasix] 20 mg PO DAILY #0 10/23/18 [Rx] Allergies/Adverse Reactions: Allergy/AdvReac Type Severity Reaction Status Date / Time adhesive Allergy Rash Verified 08/12/18 09:43 bupropion Allergy Rash Verified 08/12/18 09:43 aripiprazole [From Abilify] AdvReac Jagdeepkiness Verified 08/12/18 09:43 Date of admission: 10/22/18 01:11 Primary care physician: Lulu Kearney Consults: 10/21/18 23:34 Consult to Cop Examiner [CONS] Routine Reason for SW Consult: pt has home health and currently in ECF for rehab 10/22/18 00:53 Consult to Cardiology [CONS] Routine Comment: Consulting Provider: Cardiology [place] Reason for Consult: New onset atrial fibrillation Call Completed: No 10/22/18 12:27 Consult to Oncology [CONS] Routine Consulting Provider: Oncology [facility] Reason for Consult: Lung cancer with active chemotherapy Call Completed: Yes - Constitutional Vitals: Temp Pulse Resp BP Pulse Ox 98.4 F 101 20 154/67 95 10/23/18 11:28 10/23/18 11:28 10/23/18 11:28 10/23/18 11:28 10/23/18 11:28 General appearance: Present: A&O X 3, no acute distress Exam: General appearance: No acute distress Eye exam: EOMI, PERRLA ENT exam: Moist oral mucosa Neck nontender, supple Respiratory exam: Clear to auscultation bilaterally Cardiovascular exam: Regular rate and regular rhythm, no systolic murmur Abdominal exam: Soft, nontender, nondistended, positive bowel sounds Extremities exam: No calf tenderness, trace pedal edema Present-no sign of cellulitis Skin-no rash Neurological exam: Alert, awake, oriented 3, CN II-XII intact, no focal deficits. - Patient Status Disposition: Transfer Inpatient Rehab Fac Condition: Fair Overall status at discharge: patient is progressing back to baseline - Discharge Instructions Follow Up With: Lulu Kearney MD [Primary Care Provider] - - Diet and Activity Activity: as per physical therapy Diet: advance to your usual diet, low fat, low cholesterol, low salt diet
--- NOTE | 2018-10-23 12:25 | Physician Discharge Referral ---
- Diagnosis (1) Atrial fibrillation with rapid ventricular response Priority: Primary Status: Acute (2) Urine retention Priority: Primary Status: Acute (3) Lung cancer Priority: Secondary Status: Chronic (4) Elevated troponin Priority: Primary Status: Chronic (5) Venous stasis of lower extremity Priority: Secondary Status: Acute (6) Acute kidney injury superimposed on chronic kidney disease Priority: Primary Status: Acute (7) Depression Priority: Secondary Status: Acute (8) HLD (hyperlipidemia) Priority: Secondary Status: Acute Prognosis: Fair Aware of Diagnosis: Patient - Transfer Medications Home Medications: Tamsulosin [Flomax] 0.4 mg PO DAILY 07/27/15 [History] Albuterol Sulfate [Proair Hfa] 2 puff IH Q4H PRN 03/06/18 [History] Amantadine HCl [Amantadine] 100 mg PO TID 03/06/18 [History] Atorvastatin [Lipitor] 40 mg PO DAILY 03/06/18 [History] Budesonide/Formoterol 160/4.5 [Symbicort 160/4.5] 2 puff IH BID 03/06/18 [History] Cilostazol [Pletal] 100 mg PO BID 03/06/18 [History] Citalopram [CeleXA] 20 mg PO DAILY 03/06/18 [History] risperiDONE [Risperidone] 1 mg PO BID 03/06/18 [History] Tramadol HCl [Ultram] 50 mg PO TID PRN 7 Days #21 tab 10/06/18 [Rx] Diltiazem CD (24hr) [Cardizem CD] 180 mg PO DAILY cap.er.24h 10/23/18 [Rx] Doxycycline 100 mg PO BID #0 10/23/18 [Rx] Furosemide [Lasix] 20 mg PO DAILY #0 10/23/18 [Rx] Allergies/Adverse Reactions: Allergy/AdvReac Type Severity Reaction Status Date / Time adhesive Allergy Rash Verified 08/12/18 09:43 bupropion Allergy Rash Verified 08/12/18 09:43 aripiprazole [From Abilify] AdvReac Shakiness Verified 08/12/18 09:43 - Respiratory Orders Smoking Cessation: Smoking cessation has been advised. For more information, call the [place] Tobacco Quit Line at 9-756-ZXVR-NOW. - Rehabiliation Orders Rehab Orders: Evaluation for Physical Therapy, Evaluation for Occupational Therapy CERTIFICATION: I certify that the transfer of the above named patient to an Extended Care Facility is necessary for the continuing treatment of the diagnosis listed. The above information is true and accurate reflection of patient's current condition. Confidential - Redisclosure prohibited without a patient's written consent.
--- NOTE | 2018-10-23 13:43 | Urology - Consult Note ---
Date of Encounter: 10/23/18 Time of Encounter: 13:00 - Assessment and Plan (1) Urinary retention Current Visit: Yes Status: Acute Assessment and plan: Patient is a 78-year-old female who presents with urinary retention. Patient has been started on oral Flomax daily. Patient currently has indwelling Loyola catheter that is draining sufficiently. 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 We will plan to continue with daily Flomax, indwelling Loyola catheter and see patient within 1-2 weeks for a voiding trial with Dr. Riley. Urology CN:[facility] Consult date: 10/23/18 Reason for consult Urology: Other (urinary retention) Requesting physician: Pauly Day History of present illness: Patient is a 78-year-old female who presents with urinary retention. Patient is currently undergoing chemotherapy treatment for lung cancer, and she resides at an [facility] care facility. Patient's facility nurse noticed new onset tachycardia, and brought patient to the emergency department for further evaluation. Patient was found to have new onset RVR atrial fibrillation and was admitted for further evaluation. During the patient's hospital stay, she began to experience increased urinary hesitancy and feeling of incomplete voiding. Patient underwent a bladder scan that revealed an elevated PVR, and a Loyola catheter was inserted. Currently, patient is sitting upright in bed in no apparent distress, and Loyola catheter is indwelling draining transparent, clear yellow urine sufficiently. Patient reports experiencing several episodes of urinary retention following surgical procedures in the past. Patient denies any voiding dysfunction at baseline. Patient denies any known family history of malignancy. Patient reports she has followed with Dr. Riley for previous episodes of a postoperative retention and was last evaluated in 2014 with urodynamics suggesting an atonic bladder. Past Med Surg Social Fam HX - Past Medical History Medical history: cancer, COPD, CVA, hyperlipidemia, hypertension, TIA Additional medical history: PVD, tardive dyskinesia, (lung cancer) Psychiatric history: depression - Past Surgical History Surgical History: hysterectomy Additional surgical history: R hip replacement 2013 - Social History Smoking Status: Current every day smoker Smokeless Tobacco Status: No Alcohol use: none Drug use: none - Family History Mother Living Status: Hx Family Respiratory Disorders: Yes (lung cancer) Hx Family Cancer: Yes Hx Family GI Disorders: Yes (bowel cancer) Medications and Allergies Tamsulosin [Flomax] 0.4 mg PO DAILY 07/27/15 [History] Albuterol Sulfate [Proair Hfa] 2 puff IH Q4H PRN 03/06/18 [History] Amantadine HCl [Amantadine] 100 mg PO TID 03/06/18 [History] Atorvastatin [Lipitor] 40 mg PO DAILY 03/06/18 [History] Budesonide/Formoterol 160/4.5 [Symbicort 160/4.5] 2 puff IH BID 03/06/18 [History] Cilostazol [Pletal] 100 mg PO BID 03/06/18 [History] Citalopram [CeleXA] 20 mg PO DAILY 03/06/18 [History] risperiDONE [Risperidone] 1 mg PO BID 03/06/18 [History] Tramadol HCl [Ultram] 50 mg PO TID PRN 7 Days #21 tab 10/06/18 [Rx] Diltiazem CD (24hr) [Cardizem CD] 180 mg PO DAILY cap.er.24h 10/23/18 [Rx] Doxycycline 100 mg PO BID #0 10/23/18 [Rx] Furosemide [Lasix] 20 mg PO DAILY #0 10/23/18 [Rx] Allergy/AdvReac Type Severity Reaction Status Date / Time adhesive Allergy Rash Verified 08/12/18 09:43 bupropion Allergy Rash Verified 08/12/18 09:43 aripiprazole [From Abilify] AdvReac Shakiness Verified 08/12/18 09:43 Review of Systems - Constitutional no chills, no fatigue, no fever(s) - EENT Nose, mouth and throat: no dizziness, no headache(s) - Cardiovascular no chest pain, no diaphoresis, no dyspnea - Respiratory no cough, no dyspnea - Gastrointestinal no abdominal pain, no nausea - Genitourinary Genitourinary: change in urinary stream, difficulty urinating, urinary hesit angel luis, no dysuria, no flank pain, no hematuria, no urinary frequency, no urinary incontinence, no urinary urgency - Musculoskeletal no back pain, no muscle weakness - Integumentary no erythema, no rash - Neurological no confusion, no syncope - Psychiatric no anxiety, no confusion - Hematologic/Lymphatic no easy bleeding, no easy bruising - Allergic/Immunologic no throat swelling, no wheezing Exam Initial Vital Signs Temp Pulse Resp BP Pulse Ox 97.9 F 152 18 129/77 97 10/21/18 19:03 10/21/18 19:03 10/21/18 19:03 10/21/18 19:03 10/21/18 19:03 - General physical appearance Present: no distress, no pain - Eyes Present: PERRL, normal ocular movement - ENT Present: normal nares, no hearing loss, no congestion - Neck Present: no masses, trachea midline, no lymphadenopathy - Respiratory Present: normal respiratory effort - Cardiovascular Cardiovascular exam IM: tachycardia - Abdomen Abdomen: Present: soft, non tender - Genitourinary Present: other (Loyola catheter indwelling and draining transparent clear yellow urine into bedside bag) - Integumentary Present: no rash, no abnormal pigmentation - Neurologic Present: normal coordination - Musculoskeletal Present: other (Normal posture) Urology Results - Labs 10/23/18 03:10 10/23/18 03:10 Abnormal lab results RBC 3.12 M/mcL (3.82-4.97) L 10/23/18 03:10 Hgb 9.7 g/dL (11.5-15.4) L 10/23/18 03:10 Hct 30.0 % (35.3-44.9) L 10/23/18 03:10 MPV 9.2 fL (9.4-12.4) L 10/22/18 01:17 PT 12.3 Seconds (9.4-12.1) H 10/22/18 01:17 5439 ng/mLFEU (0-500) H 10/22/18 07:36 Heparin Anti-Xa, Unfract 0.01 IU/mL (0.30-0.70) L 10/22/18 01:17 Carbon Dioxide 30 mEq/L (23-29) H 10/22/18 01:17 BUN 30 mg/dL (8-23) H 10/23/18 03:10 1.41 mg/dL (0.60-1.20) H 10/22/18 01:17 Est GFR ( Amer) 57 (> 60) L 10/23/18 03:10 Est GFR (Non-Af Amer) 47 (> 60) L 10/23/18 03:10 27 (6-26) H 10/23/18 03:10 Glucose 110 mg/dL (70-105) H 10/23/18 03:10 Calcium 8.5 mg/dL (8.6-10.3) L 10/22/18 01:17 0.09 ng/mL (< 0.04) H* 10/22/18 01:17 Diabetes panel 10/23/18 Range/Units 03:10 Sodium 139 (136-145) mEq/L Potassium 3.5 (3.5-5.1) mEq/L Chloride 105 (98-107) mEq/L Carbon Dioxide 27 (23-29) mEq/L BUN 30 H (8-23) mg/dL Creatinine 1.13 (0.60-1.20) mg/dL Glucose 110 H (70-105) mg/dL Calcium 8.7 (8.6-10.3) mg/dL Calcium panel 10/23/18 Range/Units 03:10 Calcium 8.7 (8.6-10.3) mg/dL Pituitary panel 10/23/18 Range/Units 03:10 Sodium 139 (136-145) mEq/L Potassium 3.5 (3.5-5.1) mEq/L Chloride 105 (98-107) mEq/L Carbon Dioxide 27 (23-29) mEq/L BUN 30 H (8-23) mg/dL Creatinine 1.13 (0.60-1.20) mg/dL Glucose 110 H (70-105) mg/dL Calcium 8.7 (8.6-10.3) mg/dL Adrenal panel 10/23/18 Range/Units 03:10 Sodium 139 (136-145) mEq/L Potassium 3.5 (3.5-5.1) mEq/L Chloride 105 (98-107) mEq/L Carbon Dioxide 27 (23-29) mEq/L BUN 30 H (8-23) mg/dL Creatinine 1.13 (0.60-1.20) mg/dL Glucose 110 H (70-105) mg/dL Calcium 8.7 (8.6-10.3) mg/dL All other labs normal. Consult Discharge Plan - Plan Referrals: Lulu Kearney MD [Primary Care Provider] -
[2018-10-23 16:35] VITALS: BP 152/51
[2018-10-24] MEDS ORDERED: Diltiazem CD (24hr) 180 MG CAPSULE PO SCH (09:00)
== END 2018-10-23 18:35 | DRG 309 ==
LOC: 2ANU 18:54 → EMEROOARM 18:54 → 2ANU 22:20 → 2NNU 10-22 01:59
PROVIDERS: ADMIT Internal Medicine; ATTEND Internal Medicine

== ENCOUNTER 2019-07-05 15:02 | Inpatient (IN) ==
[2019-07-05 15:50] LABS: Activated Partial Thrombo Time 31.9 Seconds (26.0-36.0)
[2019-07-05 15:52] LABS: Basophils % 0.3 %; Eosinophils # 0.3 K/mcL (0.0-0.6); Eosinophils % 3.8 %; Hematocrit 34.8 % (35.3-44.9); Hemoglobin 11.1 g/dL (11.5-15.4); Immature Granulocytes % 0.4 % (0-4); Lymphocytes # 1.1 K/mcL (0.6-4.6); Lymphocytes % 13.7 %; Mean Corpuscular HGB Conc 31.9 g/dL (31.6-35.5); Mean Corpuscular Hemoglobin 32.2 pg (28.0-33.3); Mean Corpuscular Volume 100.9 fL (83.0-100.0); Mean Platelet Volume 9.4 fL (9.4-12.4); Monocytes # 0.7 K/mcL (0.0-1.3); Monocytes % 8.9 %; Neutrophils # 5.6 K/mcL (1.6-8.9); Platelet Count 172 K/mcL (140-400); Red Blood Count 3.45 M/mcL (3.82-4.97); Red Cell Distribution Width 13.8 % (11.5-14.5); Segmented Neutrophils % 72.9 %; White Blood Count 7.7 K/mcL (4.3-11.1)
[2019-07-05 15:59] LABS: Calcium 8.9 mg/dL (8.6-10.3); Potassium 4.9 mEq/L (3.5-5.1)
[2019-07-05] MEDS ORDERED: *HR* Heparin 5,000 UNIT/ML VIAL IVP ONE (17:49)
[2019-07-05] MEDS ORDERED: *HR* Heparin 5,000 UNIT/ML VIAL IVP PRN ×2 (17:49)
[2019-07-05] MEDS ORDERED: Heparin 25,000 UNIT/250 ML D5W 25,000 UNIT/250 ML IV.SOLN IVC SCH (18:00)
[2019-07-05] MEDS ORDERED: Naloxone 0.4 MG/ML INJ IVP PRN (19:20)
[2019-07-05] MEDS ORDERED: *HR* OxyCODONE/APAP 10/325 TABLET PO PRN (21:53)
[2019-07-05] MEDS ORDERED: *HR* HYDROmorphone (PF) 1 MG/ML SYRINGE IVP ONE (22:37)
[2019-07-06 01:21] LABS: Basophils % 0.3 %; Eosinophils # 0.3 K/mcL (0.0-0.6); Eosinophils % 4.4 %; Hemoglobin 11.4 g/dL (11.5-15.4); Immature Granulocytes % 0.3 % (0-4); Lymphocytes # 1.5 K/mcL (0.6-4.6); Lymphocytes % 21.3 %; Mean Corpuscular HGB Conc 32.6 g/dL (31.6-35.5); Mean Corpuscular Volume 98.3 fL (83.0-100.0); Mean Platelet Volume 9.4 fL (9.4-12.4); Monocytes # 0.7 K/mcL (0.0-1.3); Neutrophils # 4.7 K/mcL (1.6-8.9); Platelet Count 173 K/mcL (140-400); Red Blood Count 3.56 M/mcL (3.82-4.97); Red Cell Distribution Width 13.7 % (11.5-14.5); Segmented Neutrophils % 64.7 %; White Blood Count 7.2 K/mcL (4.3-11.1)
[2019-07-06 01:35] LABS: Calcium 8.6 mg/dL (8.6-10.3); Potassium 4.1 mEq/L (3.5-5.1)
[2019-07-06] MEDS: *HR* OxyCODONE/APAP 10/325 TABLET PO PRN (08:28)
[2019-07-06] MEDS: *HR* HYDROmorphone 2 MG/ML SYRINGE IVP PRN ×2 (09:08→21:31)
[2019-07-06] MEDS ORDERED: ceFAZolin 1,000 MG, Sodium Chloride IRRigation 1,000 ML IR ONE (14:30)
[2019-07-06] MEDS ORDERED: Vancomycin 1,000 MG VIAL ONE (16:53)
[2019-07-06] MEDS ORDERED: Ondansetron 4 MG/2 ML VIAL IVP PRN (17:30)
[2019-07-06] MEDS ORDERED: *HR* OxyCODONE Immed Rel 5 MG TABLET PO PRN (17:30)
[2019-07-06] MEDS ORDERED: *HR* Labetalol 20 MG/4 ML SYRINGE IVP PRN (17:30)
[2019-07-06] MEDS ORDERED: *HR* Phenylephrine 10 MG/ML VIAL ONE (17:52)
[2019-07-06] MEDS ORDERED: Lidocaine -MPF 4% 5 ML AMPUL ONE (17:53)
[2019-07-06] MEDS ORDERED: *HR* FentaNYL (PF) 100 MCG/2 ML VIAL ONE (17:53)
[2019-07-06] MEDS ORDERED: *HR* Rocuronium Bromide 50 MG/5 ML VIAL ONE (17:53)
[2019-07-06] MEDS ORDERED: *HR* Propofol 200 MG/20 ML VIAL IVP ONE (17:53)
[2019-07-06] MEDS ORDERED: Neostigmine Methylsulfate 3 MG/3 ML SYRINGE ONE (19:44)
[2019-07-06] MEDS: *HR* HYDROmorphone (PF) 1 MG/ML SYRINGE IVP PRN ×3 (20:27→20:42)
[2019-07-06] MEDS: Budesonide/Formoterol 160/4.5 1 PUFF INH IH SCH (21:21)
[2019-07-07] MEDS: *HR* OxyCODONE/APAP 10/325 TABLET PO PRN (06:20)
[2019-07-07 07:14] LABS: Basophils % 0.1 %; Eosinophils # 0.1 K/mcL (0.0-0.6); Eosinophils % 0.6 %; Hematocrit 30.1 % (35.3-44.9); Hemoglobin 9.9 g/dL (11.5-15.4); Immature Granulocytes % 0.2 % (0-4); Lymphocytes # 0.4 K/mcL (0.6-4.6); Lymphocytes % 4.2 %; Mean Corpuscular HGB Conc 32.9 g/dL (31.6-35.5); Mean Corpuscular Hemoglobin 32.2 pg (28.0-33.3); Mean Platelet Volume 9.3 fL (9.4-12.4); Monocytes % 10.9 %; Neutrophils # 7.8 K/mcL (1.6-8.9); Platelet Count 166 K/mcL (140-400); Red Blood Count 3.07 M/mcL (3.82-4.97); Red Cell Distribution Width 13.8 % (11.5-14.5); White Blood Count 9.3 K/mcL (4.3-11.1)
[2019-07-07] MEDS: *HR* HYDROmorphone 2 MG/ML SYRINGE IVP PRN (07:23)
[2019-07-07 07:46] LABS: BUN/Creatinine Ratio 25 (6-26); Blood Urea Nitrogen 26 mg/dL (8-23); Calcium 8.5 mg/dL (8.6-10.3); Carbon Dioxide 23 mEq/L (23-29); Chloride 107 mEq/L (98-107); Glucose 168 mg/dL (70-105); Osmolality,Calculated 303 (280-300); Potassium 4.8 mEq/L (3.5-5.1); Sodium 142 mEq/L (136-145); eGFR For African Americans > 60 (> 60); eGFR For Non-African Americans 50 (> 60)
[2019-07-07] MEDS: Budesonide/Formoterol 160/4.5 1 PUFF INH IH SCH ×2 (07:47→21:23)
[2019-07-07] MEDS ORDERED: DilTIAZem SR (12hr) 60 MG CAP.ER.12H PO SCH (09:00)
[2019-07-07] MEDS ORDERED: Furosemide 40 MG TABLET PO SCH (09:00)
[2019-07-07] MEDS ORDERED: risperiDONE 1 MG TABLET PO SCH (09:00)
[2019-07-07] MEDS ORDERED: Nicotine 21 MG PATCH.TD24 TD SCH (10:30)
[2019-07-07] MEDS ORDERED: Acetaminophen 325 MG TABLET PO PRN ×2 (10:48)
[2019-07-07] MEDS ORDERED: Naloxone 0.4 MG/ML INJ IVP PRN (10:48)
[2019-07-07] MEDS ORDERED: *HR* OxyCODONE Immed Rel 5 MG TABLET PO PRN (10:48)
[2019-07-07] MEDS ORDERED: *HR* HYDROcodone/Acet 5/325 mg TABLET PO PRN ×2 (10:48)
[2019-07-07] MEDS: *HR* OxyCODONE Immed Rel 5 MG TABLET PO PRN (15:14)
[2019-07-07] MEDS ORDERED: Ringers Solution, Lactated 500 ML IVC ONE (15:19)
[2019-07-07] MEDS ORDERED: Ipratropium/Albuterol Neb 3 ML IH PRN (16:52)
[2019-07-07] MEDS: *HR* Heparin 5,000 UNIT/ML VIAL SQ SCH (17:47)
[2019-07-07] MEDS: DilTIAZem SR (12hr) 60 MG CAP.ER.12H PO SCH (20:31)
[2019-07-08 01:26] LABS: Basophils % 0.2 %; Eosinophils # 0.2 K/mcL (0.0-0.6); Eosinophils % 1.7 %; Hematocrit 28.1 % (35.3-44.9); Immature Granulocytes % 0.2 % (0-4); Lymphocytes # 0.9 K/mcL (0.6-4.6); Lymphocytes % 10.8 %; Mean Platelet Volume 9.5 fL (9.4-12.4); Monocytes # 1.4 K/mcL (0.0-1.3); Monocytes % 15.9 %; Neutrophils # 6.1 K/mcL (1.6-8.9); Platelet Count 156 K/mcL (140-400); Red Blood Count 2.81 M/mcL (3.82-4.97); Red Cell Distribution Width 13.7 % (11.5-14.5); Segmented Neutrophils % 71.2 %; White Blood Count 8.6 K/mcL (4.3-11.1)
[2019-07-08 01:44] LABS: Calcium 8.4 mg/dL (8.6-10.3); Magnesium 2.3 mg/dL (1.6-2.6); Phosphorous 3.2 mg/dL (2.7-4.5); Potassium 4.4 mEq/L (3.5-5.1)
[2019-07-08] MEDS: *HR* Heparin 5,000 UNIT/ML VIAL SQ SCH ×2 (05:37→17:02)
[2019-07-08] MEDS: Budesonide/Formoterol 160/4.5 1 PUFF INH IH SCH ×2 (07:41→20:42)
[2019-07-08] MEDS: DilTIAZem SR (12hr) 60 MG CAP.ER.12H PO SCH ×2 (08:31→20:11)
[2019-07-08] MEDS: Furosemide 40 MG TABLET PO SCH (08:32)
[2019-07-08] MEDS: risperiDONE 1 MG TABLET PO SCH (08:32)
[2019-07-08] MEDS: *HR* OxyCODONE Immed Rel 5 MG TABLET PO PRN (10:07)
[2019-07-09 04:42] LABS: Hematocrit 26.8 % (35.3-44.9); Hemoglobin 9.4 g/dL (11.5-15.4)
[2019-07-09 05:07] LABS: Calcium 8.7 mg/dL (8.6-10.3); Magnesium 2.2 mg/dL (1.6-2.6); Phosphorous 4.1 mg/dL (2.7-4.5); Potassium 3.9 mEq/L (3.5-5.1)
[2019-07-09] MEDS: *HR* Heparin 5,000 UNIT/ML VIAL SQ SCH (05:24)
[2019-07-09] MEDS: Budesonide/Formoterol 160/4.5 1 PUFF INH IH SCH (07:46)
[2019-07-09] MEDS: DilTIAZem SR (12hr) 60 MG CAP.ER.12H PO SCH (08:40)
[2019-07-09] MEDS: risperiDONE 1 MG TABLET PO SCH (08:40)
[2019-07-09] MEDS: Furosemide 40 MG TABLET PO SCH (08:41)
[2019-07-09] MEDS: *HR* OxyCODONE Immed Rel 5 MG TABLET PO PRN (09:04)
[2019-07-09 11:29] VITALS: BP 126/55
== END 2019-07-09 13:35 | DRG 240 ==
LOC: 2NNU 15:02 → EMEROOARM 15:02 → 2NNU 19:51 → SUATTDRO 22:06
PROVIDERS: ADMIT Student in an Organized Health Care Education/Training Program; ATTEND Internal Medicine

== ENCOUNTER 2019-07-20 11:18 | Inpatient (IN) ==
[~2019-07-20 11:18] MED LIST: Furosemide 40 MG/4 ML VIAL IVP ONE; Ipratropium/Albuterol Neb 3 ML IH ONE; methylPREDNISolone 125 MG/2 ML VIAL IVP ONE
[2019-07-20] MEDS ORDERED: levoFLOXacin 500 MG/100 ML 500 MG/100 ML BAG IVPB ONE (11:36)
[2019-07-20] MEDS ORDERED: Piperacillin/Tazobactam 3.375 GM in 0.9 % Sodium Chloride Mini Bag 100 ML IVPB ONE (11:36)
[2019-07-20 11:51] LABS: Basophils % 0.1 %; Hematocrit 25.1 % (35.3-44.9); Hemoglobin 8.4 g/dL (11.5-15.4); Immature Granulocytes % 0.8 % (0-4); Lymphocytes # 0.4 K/mcL (0.6-4.6); Mean Corpuscular HGB Conc 33.5 g/dL (31.6-35.5); Mean Corpuscular Hemoglobin 31.7 pg (28.0-33.3); Mean Corpuscular Volume 94.7 fL (83.0-100.0); Mean Platelet Volume 8.8 fL (9.4-12.4); Monocytes # 1.1 K/mcL (0.0-1.3); Monocytes % 6.4 %; Neutrophils # 16.3 K/mcL (1.6-8.9); Platelet Count 316 K/mcL (140-400); Red Blood Count 2.65 M/mcL (3.82-4.97); Red Cell Distribution Width 14.6 % (11.5-14.5); Segmented Neutrophils % 90.7 %; White Blood Count 17.9 K/mcL (4.3-11.1)
[2019-07-20 11:58] LABS: INR 1.1; Prothrombin Time 12.9 Seconds (9.4-12.1)
[2019-07-20] MEDS ORDERED: Isovue-370 500 ML BOTTLE IVP ONE (12:05)
[2019-07-20 12:08] LABS: Bilirubin,Direct 0.2 mg/dL (0.0-0.2); Bilirubin,Indirect 0.3 mg/dL (0.0-1.0); Bilirubin,Total 0.5 mg/dL (0.3-1.0); Globulin 3.1 g/dL (2.4-3.5); Total Protein 6.1 g/dL (6.4-8.9)
[2019-07-20 12:10] LABS: Calcium 8.4 mg/dL (8.6-10.3); Potassium 4.4 mEq/L (3.5-5.1)
[2019-07-20 12:15] LABS: Troponin I 0.13 ng/mL (< 0.04)
[2019-07-20 12:15] LABS: ABG Base Excess 5 mEq/L (-2 to 3); ABG HCO3 29 mEq/L (21-27); ABG Oxygen Saturation 99 % (95-98); ABG PCO2 41 mmHg (35-45); ABG PH 7.46 pH Units (7.32-7.45); ABG PO2 141 mmHg (85-104); ABG TCO2 31 mEq/L (20-26)
[2019-07-20] MEDS ORDERED: *HR* Heparin 5,000 UNIT/ML VIAL IVP ONE (12:19)
[2019-07-20] MEDS ORDERED: *HR* Heparin 5,000 UNIT/ML VIAL IVP PRN ×4 (12:19→15:56)
[2019-07-20] MEDS ORDERED: Heparin 25,000 UNIT/250 ML D5W 25,000 UNIT/250 ML IV.SOLN IVC SCH (12:30)
[2019-07-20 12:34] LABS: Heparin anti-factor XA UFH 0.05 IU/mL (0.30-0.70)
[2019-07-20 12:45] LABS: Bilirubin,Urine Negative (Negative); Blood,Urine Negative (Negative); Clarity,Urine Cloudy (Clear); Color,Urine Yellow (Yellow); Glucose,Urine (UA) Normal (Normal); Ketones,Urine Negative (Negative); Leukocyte Esterase,Urine Moderate (Negative); Nitrite,Urine Positive (Negative); Protein,Urine 30 mg/dL (Neg-Trace); Specific Gravity,Urine 1.019 (1.010-1.025); Urobilinogen,Urine Normal (Normal)
[2019-07-20 12:54] LABS: Bacteria,Urine Many per hpf (None-Few); RBC,Urine 0-3 per hpf (0-3); Squamous Epithelial Cell,Urine Few per lpf (None-Few)
[2019-07-20] MEDS ORDERED: Morphine Sulfate 2 MG/ML SYRINGE IVP ONE (13:06)
[2019-07-20] MEDS ORDERED: 0.9 % Sodium Chloride 250 ML ONE (13:44)
[2019-07-20] MEDS ORDERED: Naloxone 0.4 MG/ML INJ IVP PRN (15:30)
[2019-07-20] MEDS ORDERED: Albuterol 2.5 MG/3 ML NEBULIZER IH PRN (15:35)
[2019-07-20] MEDS ORDERED: Budesonide/Formoterol 160/4.5 1 PUFF INH IH PRN (15:40)
[2019-07-20] MEDS ORDERED: Vancomycin (wt based) 1,000 MG VIAL IVPB SCH (16:00)
[2019-07-20] MEDS: Ipratropium/Albuterol Neb 3 ML IH SCH ×3 (16:46→23:12)
[2019-07-20] MEDS: methylPREDNISolone 125 MG/2 ML VIAL IVP SCH (17:59)
[2019-07-20] MEDS ORDERED: D5% in Water 1,000 ML IVC PRN (18:49)
[2019-07-20] MEDS ORDERED: Dextrose Gel 15 GM/37.5 ML TUBE PO PRN ×2 (18:49)
[2019-07-20] MEDS ORDERED: *HR* Dextrose 50 % in Water (Syg) 50 ML SYRINGE IVP PRN (18:49)
[2019-07-20 19:37] LABS: Adenovirus Not Detected (Not Detect); Bordetella Pertussis Not Detected (Not Detect); Chlamydophila pneumoniae Not Detected (Not Detect); Coronavirus 229E Not Detected (Not Detect); Coronavirus HKU1 Not Detected (Not Detect); Coronavirus NL63 Not Detected (Not Detect); Coronavirus OC43 Not Detected (Not Detect); Human Metapneumovirus Not Detected (Not Detect); Human Rhinovirus/Enterovirus Not Detected (Not Detect); Influenza A Subtype 2009 H1 Not Detected (Not Detect); Influenza B Not Detected (Not Detect); Mycoplasma pneumoniae Not Detected (Not Detect); Parainfluenza Virus 1 Not Detected (Not Detect); Parainfluenza Virus 2 Not Detected (Not Detect); Parainfluenza Virus 3 Not Detected (Not Detect); Parainfluenza Virus 4 Not Detected (Not Detect); Respiratory Syncytial Virus Not Detected (Not Detect)
[2019-07-20] MEDS ORDERED: Furosemide 40 MG in 0.9 % Sodium Chloride 50 ML IV SCH (21:00)
[2019-07-20] MEDS: risperiDONE 1 MG TABLET PO SCH (21:27)
[2019-07-20] MEDS: Piperacillin/Tazobactam 3.375 GM in 0.9 % Sodium Chloride Mini Bag 100 ML IVPB SCH (22:07)
[2019-07-21] MEDS: Heparin 25,000 UNIT/250 ML D5W 25,000 UNIT/250 ML IV.SOLN IVC SCH ×2 (01:00→17:52)
[2019-07-21] MEDS: methylPREDNISolone 125 MG/2 ML VIAL IVP SCH ×2 (01:12→09:47)
[2019-07-21] MEDS: Insulin LISPRO 300 UNITS/3 ML VIAL SQ SCH ×5 (01:14→23:15)
[2019-07-21 01:22] LABS: ABG Base Excess 4 mEq/L (-2 to 3); ABG HCO3 29 mEq/L (21-27); ABG Oxygen Saturation 97 % (95-98); ABG PCO2 48 mmHg (35-45); ABG PH 7.39 pH Units (7.32-7.45); ABG PO2 89 mmHg (85-104); ABG TCO2 31 mEq/L (20-26)
[2019-07-21] MEDS: Ipratropium/Albuterol Neb 3 ML IH SCH ×6 (03:17→23:51)
[2019-07-21 04:51] LABS: Hematocrit 24.5 % (35.3-44.9); Hemoglobin 8.1 g/dL (11.5-15.4); Immature Granulocytes % 1.7 % (0-4); Lymphocytes # 0.3 K/mcL (0.6-4.6); Lymphocytes % 1.3 %; Mean Corpuscular HGB Conc 33.1 g/dL (31.6-35.5); Mean Corpuscular Hemoglobin 31.5 pg (28.0-33.3); Mean Corpuscular Volume 95.3 fL (83.0-100.0); Monocytes # 0.7 K/mcL (0.0-1.3); Neutrophils # 20.4 K/mcL (1.6-8.9); Platelet Count 307 K/mcL (140-400); Red Blood Count 2.57 M/mcL (3.82-4.97); Red Cell Distribution Width 14.2 % (11.5-14.5); White Blood Count 21.8 K/mcL (4.3-11.1)
[2019-07-21 05:07] LABS: Calcium 8.4 mg/dL (8.6-10.3); Potassium 4.1 mEq/L (3.5-5.1)
[2019-07-21] MEDS: Piperacillin/Tazobactam 3.375 GM in 0.9 % Sodium Chloride Mini Bag 100 ML IVPB SCH ×3 (05:23→19:52)
[2019-07-21] MEDS ORDERED: Furosemide 40 MG/4 ML VIAL IVP SCH (09:00)
[2019-07-21] MEDS: Pantoprazole 40 MG VIAL IVP SCH (09:47)
[2019-07-21] MEDS: risperiDONE 1 MG TABLET PO SCH ×2 (13:25→19:52)
[2019-07-21] MEDS ORDERED: Perflutren Lipid Microsphere 1.3 ML in 0.9 % Sodium Chloride 8.7 ML IVP ONE (17:43)
[2019-07-21] MEDS: MethylPREDNISolone 40 MG/ML VIAL IVP SCH ×2 (17:52→23:15)
[2019-07-21] MEDS ORDERED: *HR* OxyCODONE Oral Soln 5 MG/5 ML UD.LIQ PO PRN (21:22)
[2019-07-21] MEDS ORDERED: *HR* Metoprolol 5 MG/5 ML VIAL IVP PRN (22:23)
[2019-07-22] MEDS: Ipratropium/Albuterol Neb 3 ML IH SCH ×6 (03:36→23:47)
[2019-07-22 05:57] LABS: Basophils % 0.1 %; Hematocrit 22.9 % (35.3-44.9); Hemoglobin 7.5 g/dL (11.5-15.4); Immature Granulocytes % 0.7 % (0-4); Lymphocytes # 0.2 K/mcL (0.6-4.6); Lymphocytes % 1.6 %; Mean Corpuscular HGB Conc 32.8 g/dL (31.6-35.5); Mean Corpuscular Hemoglobin 31.8 pg (28.0-33.3); Mean Platelet Volume 8.9 fL (9.4-12.4); Monocytes # 0.5 K/mcL (0.0-1.3); Monocytes % 3.6 %; Neutrophils # 13.7 K/mcL (1.6-8.9); Platelet Count 262 K/mcL (140-400); Red Blood Count 2.36 M/mcL (3.82-4.97); Red Cell Distribution Width 14.2 % (11.5-14.5); White Blood Count 14.6 K/mcL (4.3-11.1)
[2019-07-22] MEDS: Insulin LISPRO 300 UNITS/3 ML VIAL SQ SCH ×3 (06:10→17:37)
[2019-07-22] MEDS: Piperacillin/Tazobactam 3.375 GM in 0.9 % Sodium Chloride Mini Bag 100 ML IVPB SCH (06:10)
[2019-07-22] MEDS: Heparin 25,000 UNIT/250 ML D5W 25,000 UNIT/250 ML IV.SOLN IVC SCH (06:11)
[2019-07-22 06:17] LABS: Calcium 8.2 mg/dL (8.6-10.3); Potassium 3.5 mEq/L (3.5-5.1)
[2019-07-22] MEDS: risperiDONE 1 MG TABLET PO SCH ×2 (08:57→20:57)
[2019-07-22] MEDS: MethylPREDNISolone 40 MG/ML VIAL IVP SCH ×2 (08:57→20:57)
[2019-07-22] MEDS: Pantoprazole 40 MG VIAL IVP SCH (08:58)
[2019-07-22] MEDS ORDERED: DilTIAZem CD (24hr) 240 MG CAP.ER.24H PO SCH (09:00)
[2019-07-22] MEDS ORDERED: Aminoglycoside Consult 1 EACH MC ONE (09:48)
[2019-07-22] MEDS ORDERED: cefTRIAXone 1,000 MG in Water for inj. (sterile) 10 ML IVP SCH (10:00)
[2019-07-22] MEDS ORDERED: D5% in Water 1,000 ML IVC PRN (12:38)
[2019-07-22] MEDS ORDERED: Dextrose Gel 15 GM/37.5 ML TUBE PO PRN ×2 (12:38)
[2019-07-22] MEDS ORDERED: Naloxone 0.4 MG/ML INJ IVP PRN (12:38)
[2019-07-22] MEDS ORDERED: *HR* Dextrose 50 % in Water (Syg) 50 ML SYRINGE IVP PRN (12:38)
[2019-07-22] MEDS ORDERED: *HR* OxyCODONE Oral Soln 5 MG/5 ML UD.LIQ PO PRN (12:38)
[2019-07-22] MEDS ORDERED: Albuterol 2.5 MG/3 ML NEBULIZER IH PRN (12:38)
[2019-07-22] MEDS: *HR* Heparin 5,000 UNIT/ML VIAL SQ SCH ×2 (15:05→20:57)
[2019-07-22] MEDS: Budesonide/Formoterol 160/4.5 1 PUFF INH IH SCH (19:57)
[2019-07-22] MEDS ORDERED: MethylPREDNISolone 40 MG/ML VIAL IVP SCH (21:00)
[2019-07-22] MEDS ORDERED: Budesonide/Formoterol 160/4.5 1 PUFF INH IH SCH (22:00)
[2019-07-23] MEDS: Insulin LISPRO 300 UNITS/3 ML VIAL SQ SCH ×3 (01:33→20:59)
[2019-07-23] MEDS: Ipratropium/Albuterol Neb 3 ML IH SCH ×3 (03:51→11:19)
[2019-07-23 04:02] LABS: Hematocrit 21.7 % (35.3-44.9); Hemoglobin 7.2 g/dL (11.5-15.4); Immature Granulocytes % 0.7 % (0-4); Lymphocytes # 0.3 K/mcL (0.6-4.6); Lymphocytes % 2.7 %; Mean Corpuscular HGB Conc 33.2 g/dL (31.6-35.5); Mean Corpuscular Hemoglobin 30.8 pg (28.0-33.3); Mean Corpuscular Volume 92.7 fL (83.0-100.0); Mean Platelet Volume 8.9 fL (9.4-12.4); Monocytes # 0.3 K/mcL (0.0-1.3); Monocytes % 3.5 %; Neutrophils # 8.6 K/mcL (1.6-8.9); Platelet Count 282 K/mcL (140-400); Red Blood Count 2.34 M/mcL (3.82-4.97); Red Cell Distribution Width 14.2 % (11.5-14.5); Segmented Neutrophils % 93.1 %; White Blood Count 9.2 K/mcL (4.3-11.1)
[2019-07-23 04:28] LABS: Calcium 8.1 mg/dL (8.6-10.3); Potassium 3.2 mEq/L (3.5-5.1)
[2019-07-23] MEDS: *HR* Heparin 5,000 UNIT/ML VIAL SQ SCH ×3 (06:20→20:58)
[2019-07-23] MEDS: Budesonide/Formoterol 160/4.5 1 PUFF INH IH SCH ×2 (07:29→21:19)
[2019-07-23 10:48] LABS: Estimated Average Glucose 137 mg/dl
[2019-07-23] MEDS: risperiDONE 1 MG TABLET PO SCH ×2 (12:27→20:58)
[2019-07-23] MEDS: DilTIAZem CD (24hr) 240 MG CAP.ER.24H PO SCH (12:30)
[2019-07-23] MEDS: MethylPREDNISolone 40 MG/ML VIAL IVP SCH ×2 (12:46→20:58)
[2019-07-23] MEDS: cefTRIAXone 1,000 MG in 0.9 % Sodium Chloride Mini Bag 100 ML IVP SCH (13:05)
[2019-07-23] MEDS ORDERED: Ipratropium/Albuterol Neb 3 ML IH PRN (14:24)
[2019-07-24] MEDS: *HR* OxyCODONE Oral Soln 5 MG/5 ML UD.LIQ PO PRN ×2 (00:47→16:36)
[2019-07-24 01:23] LABS: Hemoglobin 7.2 g/dL (11.5-15.4); Immature Granulocytes % 0.6 % (0-4); Lymphocytes # 0.3 K/mcL (0.6-4.6); Lymphocytes % 5.6 %; Mean Corpuscular HGB Conc 34.3 g/dL (31.6-35.5); Mean Corpuscular Hemoglobin 31.6 pg (28.0-33.3); Mean Corpuscular Volume 92.1 fL (83.0-100.0); Monocytes # 0.3 K/mcL (0.0-1.3); Monocytes % 6.2 %; Neutrophils # 4.4 K/mcL (1.6-8.9); Platelet Count 257 K/mcL (140-400); Red Blood Count 2.28 M/mcL (3.82-4.97); Red Cell Distribution Width 13.9 % (11.5-14.5); Segmented Neutrophils % 87.6 %
[2019-07-24 01:43] LABS: Calcium 8.1 mg/dL (8.6-10.3); Potassium 3.3 mEq/L (3.5-5.1)
[2019-07-24] MEDS: *HR* Heparin 5,000 UNIT/ML VIAL SQ SCH ×3 (05:51→21:06)
[2019-07-24] MEDS: Budesonide/Formoterol 160/4.5 1 PUFF INH IH SCH ×2 (08:01→22:43)
[2019-07-24] MEDS: MethylPREDNISolone 40 MG/ML VIAL IVP SCH ×2 (08:16→21:06)
[2019-07-24] MEDS: DilTIAZem CD (24hr) 240 MG CAP.ER.24H PO SCH (08:16)
[2019-07-24] MEDS: risperiDONE 1 MG TABLET PO SCH ×2 (08:16→21:06)
[2019-07-24] MEDS: cefTRIAXone 1,000 MG in 0.9 % Sodium Chloride Mini Bag 100 ML IVP SCH (08:16)
[2019-07-24] MEDS: Insulin LISPRO 300 UNITS/3 ML VIAL SQ SCH ×2 (08:19→21:07)
[2019-07-25 03:13] LABS: Hematocrit 21.4 % (35.3-44.9); Hemoglobin 7.1 g/dL (11.5-15.4); Immature Granulocytes % 1.7 % (0-4); Lymphocytes # 0.3 K/mcL (0.6-4.6); Lymphocytes % 7.5 %; Mean Corpuscular HGB Conc 33.2 g/dL (31.6-35.5); Mean Corpuscular Hemoglobin 31.1 pg (28.0-33.3); Mean Corpuscular Volume 93.9 fL (83.0-100.0); Mean Platelet Volume 9.1 fL (9.4-12.4); Monocytes # 0.2 K/mcL (0.0-1.3); Monocytes % 4.3 %; Neutrophils # 3.6 K/mcL (1.6-8.9); Platelet Count 239 K/mcL (140-400); Red Blood Count 2.28 M/mcL (3.82-4.97); Red Cell Distribution Width 13.6 % (11.5-14.5); Segmented Neutrophils % 86.5 %; White Blood Count 4.2 K/mcL (4.3-11.1)
[2019-07-25 03:30] LABS: Platelet Estimate Normal (Normal)
[2019-07-25 03:35] LABS: Calcium 8.3 mg/dL (8.6-10.3); Potassium 3.6 mEq/L (3.5-5.1)
[2019-07-25] MEDS: *HR* Heparin 5,000 UNIT/ML VIAL SQ SCH ×3 (05:35→21:28)
[2019-07-25] MEDS: cefTRIAXone 1,000 MG in 0.9 % Sodium Chloride Mini Bag 100 ML IVP SCH (08:18)
[2019-07-25] MEDS: Insulin LISPRO 300 UNITS/3 ML VIAL SQ SCH ×2 (08:18→21:27)
[2019-07-25] MEDS: risperiDONE 1 MG TABLET PO SCH ×2 (08:19→21:27)
[2019-07-25] MEDS: DilTIAZem CD (24hr) 240 MG CAP.ER.24H PO SCH (08:19)
[2019-07-25] MEDS: *HR* OxyCODONE Oral Soln 5 MG/5 ML UD.LIQ PO PRN ×2 (08:19→15:19)
[2019-07-25] MEDS: MethylPREDNISolone 40 MG/ML VIAL IVP SCH ×2 (08:20→21:27)
[2019-07-25] MEDS: Budesonide/Formoterol 160/4.5 1 PUFF INH IH SCH ×2 (11:12→20:43)
[2019-07-26] MEDS: *HR* OxyCODONE Oral Soln 5 MG/5 ML UD.LIQ PO PRN ×2 (03:23→17:26)
[2019-07-26] MEDS: *HR* Heparin 5,000 UNIT/ML VIAL SQ SCH ×3 (05:34→21:36)
[2019-07-26] MEDS: risperiDONE 1 MG TABLET PO SCH ×2 (08:37→21:32)
[2019-07-26] MEDS: DilTIAZem CD (24hr) 240 MG CAP.ER.24H PO SCH (08:37)
[2019-07-26] MEDS: Insulin LISPRO 300 UNITS/3 ML VIAL SQ SCH ×2 (08:38→21:38)
[2019-07-26] MEDS: MethylPREDNISolone 40 MG/ML VIAL IVP SCH ×2 (08:38→21:33)
[2019-07-26] MEDS: cefTRIAXone 1,000 MG in 0.9 % Sodium Chloride Mini Bag 100 ML IVP SCH (08:38)
[2019-07-26 10:27] LABS: Hematocrit 21.9 % (35.3-44.9); Hemoglobin 7.4 g/dL (11.5-15.4)
[2019-07-26] MEDS: Budesonide/Formoterol 160/4.5 1 PUFF INH IH SCH ×2 (10:54→19:25)
[2019-07-26 15:16] LABS: % Iron Saturation 9 % (15-50); Iron 21 mcg/dL (50-170); Transferrin 165 mg/dL (203-362)
[2019-07-26 15:31] LABS: Ferritin 69 ng/mL (10-120)
[2019-07-26 15:36] LABS: Folate 9.2 ng/mL (3.0-16.0)
[2019-07-27 02:04] LABS: Hematocrit 22.7 % (35.3-44.9); Hemoglobin 7.8 g/dL (11.5-15.4); Immature Granulocytes % 4.4 % (0-4); Lymphocytes # 0.3 K/mcL (0.6-4.6); Lymphocytes % 4.1 %; Mean Corpuscular HGB Conc 34.4 g/dL (31.6-35.5); Mean Corpuscular Hemoglobin 30.8 pg (28.0-33.3); Mean Corpuscular Volume 89.7 fL (83.0-100.0); Mean Platelet Volume 9.1 fL (9.4-12.4); Monocytes # 0.4 K/mcL (0.0-1.3); Monocytes % 5.9 %; Neutrophils # 5.8 K/mcL (1.6-8.9); Nucleated Red Blood Cells 0.4 /100 WBC (0); Platelet Count 290 K/mcL (140-400); Red Blood Count 2.53 M/mcL (3.82-4.97); Red Cell Distribution Width 13.6 % (11.5-14.5); Segmented Neutrophils % 85.6 %
[2019-07-27 02:06] LABS: White Blood Count 6.8 K/mcL (4.3-11.1)
[2019-07-27 02:26] LABS: Calcium 8.4 mg/dL (8.6-10.3); Potassium 3.9 mEq/L (3.5-5.1)
[2019-07-27] MEDS: *HR* OxyCODONE Oral Soln 5 MG/5 ML UD.LIQ PO PRN ×2 (03:27→09:59)
[2019-07-27] MEDS: *HR* Heparin 5,000 UNIT/ML VIAL SQ SCH (05:25)
[2019-07-27] MEDS: Budesonide/Formoterol 160/4.5 1 PUFF INH IH SCH (07:25)
[2019-07-27] MEDS: risperiDONE 1 MG TABLET PO SCH (08:24)
[2019-07-27] MEDS: DilTIAZem CD (24hr) 240 MG CAP.ER.24H PO SCH (08:24)
[2019-07-27] MEDS: Insulin LISPRO 300 UNITS/3 ML VIAL SQ SCH (08:25)
[2019-07-27] MEDS: MethylPREDNISolone 40 MG/ML VIAL IVP SCH (08:33)
[2019-07-27 12:07] VITALS: BP 140/56
== END 2019-07-27 17:14 | DRG 871 ==
LOC: EMEROOARM 11:18 → SUATTDRO 15:51 → ICNU 15:51 → 2NENU 07-22 12:31
PROVIDERS: ADMIT Internal Medicine; ATTEND Internal Medicine